=== PATIENT | male | born 1935 | race Caucasian/White ===

== ENCOUNTER → 2017-10-12 | Outpatient (CLI) | payer MEDICARE, OTHER ==
[~2017-10-12] MED LIST: ACET-1966 PO; ALIR75PE SC; APIX5TAB PO; ASCO-182 PO; ASPI-1471 PO; BICA50TA36 PO; CALC-757 PO; CEPH-13 PO; CLOP75TA43 PO; CYAN25004 PO; ERGO500037 PO; FISH1CAP15 PO; FLU180SY9 IM; FLUT9.9S; LACT1CAP6 PO; MAGN250T5 PO; MULT-1335 PO; NITR0.4T3 SL; PANT40TA65 PO; PSYL0.4C2 PO; PSYL0.5241 PO; PSYL3.4P2 PO; RAMI2.5C42 PO; RANI-324 PO; TOLN10SO3 TP; TOLN15SO; TRAM-420 PO; UBID100C48 PO; [UNRECOGNIZED DRUG - CODE] PO; [UNRECOGNIZED DRUG - CODE] TP; prevastatin PO
== END ==
LOC: RESP 10:02
PROVIDERS: ATTEND Internal Medicine
DX: J98.4 Other disorders of lung (principal); R06.02 Shortness of breath
CPT/HCPCS: 94060; 94726; 94729

== ENCOUNTER → 2017-11-16 | Outpatient (CLI) | payer MEDICARE, OTHER ==
[2017-11-16 09:50] LABS: PLATELET COUNT, AUTOMATED 141 K/uL (150-450)
== END ==
LOC: LAB 09:09
PROVIDERS: ATTEND Urology
DX: C61 Malignant neoplasm of prostate (principal)
CPT/HCPCS: 36415; 82040; 82247; 82310; 82374; 82435; 82565; 82947; 84075; 84132; 84153; 84155; 84295; 84403; 84450; 84460; 84520; 85025

== ENCOUNTER 2017-11-24 10:13 | Outpatient (RCR) | payer MEDICARE, OTHER ==
[2017-09-11 15:47] VITALS: BP 129/81
--- NOTE | 2017-09-13 00:58 | ONCOLOGY FOLLOW UP NOTE ---
EVENT DATE: September 11, 2017 CHIEF COMPLAINT/REASON FOR VISIT Mr. Foy is an 81-year-old gentleman with newly diagnosed metastatic prostate cancer here to establish care after initiation of Casodex. HISTORY OF PRESENT ILLNESS Mr. Foy presents to begin his therapy with Casodex and Lupron under the care of Dr. Miner. He has known bone disease and we would like to start Xgeva in the next week or two as well. Overall he feels well. He thinks since starting the Casodex in general he feels better. Currently he denies any hot flashes, mood changes or any other concerns. He does note high stress, as they moved from [place] approximately three months ago to be closer to his son and grandchildren, who are currently ages 12 and 10. He presents with his overall happy with his current state. PAST MEDICAL HISTORY 1. Osteoarthritis. 2. Coronary artery disease. 3. Hyperlipidemia. 4. Early stage prostate cancer status post prostatectomy in 1999 with relapse in 2017 in the bone. 5. Right hip replacement in 2011. 6. Cholecystectomy. 7. Numerous skin cancers. 8. Coronary artery stents as well as a pacemaker. 9. Abdominal surgery in the past. 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 . Has a 44-year-old son with young children here in [place]. FAMILY HISTORY Remarkable for leukemia in a brother, breast and liver cancer in his mother, a sister with some form of abdominal cancer. MEDICATIONS See chart. ALLERGIES STATINS. REVIEW OF SYSTEMS CONSTITUTIONAL: No fevers, chills, significant weight change. HEENT: He does have dry eyes. No vision changes, hearing changes. HEMATOLOGIC: Easy bruising on Coumadin. SKIN: He has numerous skin cancers and is establishing with Dermatology. CARDIOVASCULAR: He does get occasional edema. RESPIRATORY: No shortness of breath, wheeze, cough. GENITOURINARY: Nocturia times two. No frequency, urgency or hematuria. No dysuria or hematuria. GASTROINTESTINAL: No nausea, vomiting, diarrhea or constipation. MUSCULOSKELETAL: No weakness, joint pain. Positive chronic back pain. Good functional status with all of his ADLs. The remainder of the review of systems otherwise unremarkable. PHYSICAL EXAMINATION VITAL SIGNS: Blood pressure 129/81, pulse 60, respiratory rate 16, temperature 96.9 degrees Fahrenheit, oxygen saturation 94% on room air. Height 185.5 cm, weight 100 kg. Pain 0/10, fatigue 0/10. GENERAL: Stable condition, resting comfortably in the chair. HEENT: Normocephalic, atraumatic. LYMPHATIC: No appreciable cervical, supraclavicular or axillary adenopathy. CARDIOVASCULAR: Regular rate and rhythm. LUNGS: Clear. ABDOMEN: Soft, nontender, nondistended. No organomegaly or masses. EXTREMITIES: No edema today. Remainder of physical exam otherwise unremarkable. IMPRESSION AND PLAN Mr. Foy is a pleasant 81-year-old gentleman with metastatic prostate cancer , currently on Casodex and Lupron. Completely agree with Dr. Miner's plan. Would like to add Xgeva and we will do that soon. Answered all of their many questions today. We talked about the diagnosis, treatment options and natural history of metastatic prostate cancer in great detail today. Discussed future therapy options as well if needed, but hopefully he will never need them. I will see him approximately every three to six months. He will mainly be under the care of Dr. Miner, unless he has progression or resistant disease. He will get the Xgeva monthly for one year and then assess after that. Billing: New patient level 4. Total time 45 minutes, counseling time 30. MTDD
[2017-09-26 10:43] LABS: PLATELET COUNT, AUTOMATED 166 K/uL (150-450)
[2017-10-27 10:05] VITALS: BP 122/79
[2017-10-27 10:35] LABS: PLATELET COUNT, AUTOMATED 136 K/uL (150-450)
[~2017-11-24] VITALS: Ht 185.4 cm; Wt 100.0 kg
[~2017-11-24 10:13] MED LIST changes: +DENOSUMAB 120 MG/1.7 ML VIAL SUBQ ONE
[2017-11-24 10:26] VITALS: BP 110/70
[2017-11-24] MEDS ORDERED: DENOSUMAB 120 MG/1.7 ML VIAL SUBQ ONE (10:30)
[2017-11-24 10:43] LABS: PLATELET COUNT, AUTOMATED 130 K/uL (150-450)
[2017-12-05] MEDS ORDERED: ERGO500037 PO (11:05)
[2017-12-05] MEDS ORDERED: AZEL205. (11:05)
[2017-12-05] MEDS ORDERED: FLUT9.9S (11:05)
[2017-12-05] MEDS ORDERED: DEN120I SUBQ (11:15)
[2017-12-05] MEDS ORDERED: LEUP3.753 IM (11:15)
[2017-12-08] MEDS ORDERED: ERGO500037 PO (10:16)
== END 2017-12-07 ==
LOC: SPU 10:13
PROVIDERS: ATTEND Internal Medicine
DX: C61 Malignant neoplasm of prostate (principal); C79.82 Secondary malignant neoplasm of genital organs
CPT/HCPCS: 36415; 84153; 85025; 96372; G0463; J0897; 82040; 82247; 82310; 82374; 82435; 82565; 82947; 84075; 84132; 84155; 84295; 84450; 84460; 84520; 99202

== ENCOUNTER → 2017-11-29 | Outpatient (CLI) | payer MEDICARE, OTHER ==
[~2017-11-29] MED LIST changes: -DENOSUMAB 120 MG/1.7 ML VIAL SUBQ ONE; +REGADENOSON 0.4 MG/5 ML SYR ONE
--- NOTE | 2017-11-29 15:13 | RT STRESS TEST REPORT ---
FACILITY: [facility] - [place] PATIENT NAME: VIKTOR RUIZ : [id number] MR: [id number] V: [id number] EXAM DATE: ORDERING PHYSICIAN: EDWINA PEREZ TECHNOLOGIST: Yaniv Acquisition Time: 2017-11-29 14:19:34 Total Exercise Time: 00:01:00 Test Indications: Screening for CAD Medications: Protocol: LEXISCAN Max HR: 072 BPM 52% of Pred: 137 BPM Max BP: 123/092 mmHG Max Work Load: 1.0 METS Confirmed by MELISSA ZHANG ([id number]) on 11/29/2017 3:12:44 PM Referred By: Edwina Perez Overread By: MELISSA ZHANG
--- NOTE | 2017-11-29 17:03 | RADIOLOGY IMAGING REPORT ---
FACILITY: [facility] PATIENT NAME: Carlos Foy : 1935 MR: [id number] V: [id number] EXAM DATE: ORDERING PHYSICIAN: EDWINA PEREZ TECHNOLOGIST: Location: [facility] Patient: Carlos Foy : 1935 Visit/Account:[id number] Date of Sevice: 11/29/2017 EXAMINATION: Single isotope SPECT imaging with regadenoson infusion and gated SPECT imaging. DATE OF EXAMINATION: 11/29/17. DATE OF INTERPRETATION: 11/29/17. REQUESTING PHYSICIAN: EDWINA PEREZ. INDICATION: The patient is a 82-year-old male evaluated for [CAD ]. PROCEDURE: After informed consent the patient received an intravenous injection of 11.6 mCi of Tc-99 m sestamibi followed at an appropriate time interval by rest imaging. The patient then subsequently received an intravenous infusion of 0.4 mg of regadenoson per protocol without complication. Resting heart rate was 63 bpm with a peak heart rate of 72 bpm. Blood pressure at rest was 123 / 92 and fol lowing infusion was [123 ] / 92. Baseline EKG demonstrates atrial paced, ventricular sensed rhythm . There were no EKG changes of ischemia following infusion. Symptoms were nonspecific. The patient then received an intravenous injection of 28.5 mCi of Tc-99m sestamibi followed by stress imaging. RAW DATA: Examination of the summed raw data revealed a adequate quality study. No artifact present. MYOCARDIAL PERFUSION: The tomographic images demonstrate normal myocardial perfusion uptake without ischemia or infarction. No TID. GATED IMAGES: The gated images demonstrate LVEF 71%. No regional wall motion abnormalities. IMPRESSION: 1. Non-diagnostic pharmacologic stress EKG 2. Normal myocardial perfusion scan. 3. Normal LV systolic function; LVEF 71%. 4. Based on the results of this exam, the patient appears to be at low risk for 1 year cardiovascular events (<1%/next 1 year). Intermediate nursing home risk based on known CAD and need for pharmacologic stress test as opposed to exercise. 5. No prior study for comparison. Report Dictated By: Bhavik Moreno at 11/29/2017 4:53 PM Report E-Signed By: Bhavik Moreno at 11/29/2017 4:59 PM WSN:[email or web address]
== END ==
LOC: NUC 00:19
PROVIDERS: ATTEND Internal Medicine
DX: I49.1 Atrial premature depolarization (principal)
CPT/HCPCS: 78452; 93017; A9500; J2785

== ENCOUNTER → 2017-12-05 | Outpatient (CLI) | payer MEDICARE, OTHER ==
[~2017-12-05] MED LIST changes: +AZEL205.; +DEN120I SUBQ; +LEUP3.753 IM; -REGADENOSON 0.4 MG/5 ML SYR ONE
--- NOTE | 2017-12-05 13:36 | RADIOLOGY IMAGING REPORT ---
FACILITY: [facility] PATIENT NAME: Carlos Foy : 1935 MR: [id number] V: [id number] EXAM DATE: ORDERING PHYSICIAN: AME SAHU TECHNOLOGIST: [place] [facility] Foy : 1935 Visit/Account:[id number] Date of Sevice: 12/05/2017 Exam type: CHEST PA AND LAT History: sob Comparison: August 07, 2017. Findings: There is chronic interstitial prominence throughout the lungs similar to the prior study. No new are as of pulmonary consolidation are identified. The cardiac silhouette is mildly enlarged. There is c alcification of the mitral annulus. There is moderate ectasia the thoracic aorta. Dual lead cardiac pacemaker is noted, leads appear unchanged. Again noted is prior surgical resection of multiple pos terior right ribs. There are moderate spondylotic changes of the thoracic spine IMPRESSION: 1. Chronic initial prominence again noted throughout the lungs similar to the prior study Mild cardiomegaly Report Dictated By: Nury Dawn MD at 12/05/2017 1:28 PM Report E-Signed By: Nury Dawn MD at 12/05/2017 1:30 PM WSN:[email or web address]
== END ==
LOC: RAD 11:10
PROVIDERS: ATTEND Internal Medicine
DX: I51.7 Cardiomegaly (principal); I70.0 Atherosclerosis of aorta; I77.810 Thoracic aortic ectasia; Z95.0 Presence of cardiac pacemaker; Z90.89 Acquired absence of other organs; M46.90 Unspecified inflammatory spondylopathy, site unspecified
CPT/HCPCS: 71046

== ENCOUNTER → 2017-12-08 | Outpatient (CLI) | payer MEDICARE, OTHER ==
[2017-12-08 09:19] LABS: LDL CHOLESTEROL 59 mg/dl
== END ==
LOC: LAB 08:39
PROVIDERS: ATTEND Internal Medicine
DX: I48.0 Paroxysmal atrial fibrillation (principal); R06.02 Shortness of breath; C79.82 Secondary malignant neoplasm of genital organs; I25.10 Atherosclerotic heart disease of native coronary artery without angina pectoris; I10 Essential (primary) hypertension; E78.4 Other hyperlipidemia; E53.8 Deficiency of other specified B group vitamins; E55.9 Vitamin D deficiency, unspecified
CPT/HCPCS: 36415; 82040; 82247; 82306; 82310; 82374; 82435; 82465; 82565; 82607; 82947; 83718; 84075; 84132; 84155; 84295; 84443; 84450; 84460; 84478; 84520

== ENCOUNTER 2018-02-22 11:19 | Outpatient (RCR) | payer MEDICARE, OTHER ==
[2017-12-13 10:01] VITALS: BP 119/74
--- NOTE | 2017-12-13 10:56 | ONC Progress Note - NP.Halsey ---
Patient History Date of Service Dec 13, 2017 Reason For Visit/HPI Patient is seen with his today for follow-up with his metastatic prostate cancer. Patient currently is on Casodex and Lupron with Dr. Miner. Overall he reports he is tolerating treatment without difficulty. He occasionally has hot flashes followed by chills. He previously had fatigue which increased over the last 10 years ultimately leading to his diagnosis. He feels that his fatigue is slowly improving. He is able to walk almost a mile a day, but also needs to rest daily. He has no mood changes. He feels that they have settled in to [place] after moving from [place] to with his only son and grandchildren. Patient had many questions regarding length of therapy and requested to see previous bone scan and CT scan. Time was spent reviewing these. Problem List (1) Vitamin D deficiency (2) Metastatic malignant neoplasm to prostate Oncology History Patient is an 81-year-old gentleman diagnosed with metastatic prostate cancer in September 2017. Patient reports having a prostatectomy approximately 17 years ago and followed his PSA 2 years post and then no longer followed a PSA. He began to experience increased fatigue and weakness and generalized bone aches. After moving from [place] to [place] to with his son and children staging studies were completed with the PSA through primary care provider. Patient was started on Casodex and Lupron under the care of Dr. Miner. 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 . Has a 44-year-old son with young children here in [place]. FAMILY HISTORY Remarkable for leukemia in a brother, breast and liver cancer in his mother, a sister with some form of abdominal cancer. Smoking History: Yes Smoking Status: Former Smoker Medications and Allergies Active Scripts Ergocalciferol (Vitamin D2) (VITAMIN D2) 50,000 Unit Capsule, 45404 UNIT PO QWEEK, #12 CAPSULE 4 Refills Prov:AME SAHU MD 12/08/17 Fluticasone Propionate (Flonase Allergy Relief) 9.9 Ml [place].susp, 1 SPRAY NA DAILY, #3 BOT 4 Refills Prov:AME SAHU MD 12/05/17 Pantoprazole Sodium (PANTOPRAZOLE SODIUM) 40 Mg Tablet.dr, 40 MG PO QDAY, #30 TAB.SR 6 Refills Prov:AME SAHU MD 08/07/17 Ramipril (RAMIPRIL) 2.5 Mg Capsule, 2.5 MG PO QDAY, #90 CAPSULE 3 Refills Prov:AME SAHU MD 07/04/17 Nitroglycerin (NITROGLYCERIN) 0.4 Mg Tab.subl, 1 TAB SL Every 5 minutes MDD 3, # 30 TAB 3 Refills 1 tab every 5 min PRN chest pain, up to 3 doses in 15 minutes, if pain persists after 3 doses respond ER Prov:AME SAHU MD 06/15/17 Alirocumab (Praluent Pen) 75 Mg/1 Ml Pen.injctr, 75 MG SC Q4WK, #1 VIAL 6 Refills Prov:AME SAHU MD 06/01/17 Reported Medications Leuprolide Acetate (LUPRON DEPOT) 3.75 Mg Syringekit, 0 IM 12/05/17 Denosumab (XGEVA) 120 Mg/1.7 Ml Vial, 120 MG SUBQ Q4WK, VIAL 12/05/17 Azelastine HCl (Azelastine HCl) 205.5 Mcg/0.137 Ml [place].pump, 1-2 SPRAY NA QDAY Y for sinus problems 12/05/17 Tolnaftate (Formula 3) 1 % Solution, 2 BID 09/11/17 Acetaminophen (TYLENOL) 325 Mg Tablet, 325 MG PO PRN, TAB 09/11/17 Lactobacillus Combination No.4 (PROBIOTIC) 1 Each Capsule, 1 EACH PO QODAY, CAPSULE 09/11/17 Psyllium Husk (METAMUCIL) 0.52 Gm Capsule, 12 GM PO DAILY, CAPSULE 09/11/17 Multivitamin With Minerals (MULTIPLE VITAMIN) 1 Each Tablet, 1 EACH PO DAILY, TAB 09/11/17 Ranitidine Hcl (ZANTAC) 150 Mg Tablet, 150 MG PO, TAB 09/11/17 Bicalutamide (BICALUTAMIDE) 50 Mg Tablet, 50 MG PO DAILY 09/11/17 Apixaban (ELIQUIS) 5 Mg Tablet, 5 MG PO BID 08/08/17 Calcium Citrate/Vitamin D3 (CALCIUM CITRATE - VIT D TABLET) 1 Each Tablet, 1 EACH PO QDAY 06/01/17 Ascorbic Acid (VITAMIN C) 500 Mg Tablet, 1 TAB PO QDAY, TAB 06/01/17 Cyanocobalamin (Vitamin B-12) (Vitamin B12) 2,500 Mcg Tablet, 1 TAB PO QDAY 06/01/17 Tolnaftate (TOLNAFTATE) 10 Ml Solution, 1 PIA TP BID 06/01/17 Hydroquinone Microspheres (HYDROQUINONE) 30 Gm Crm.er..g., 1 PIA TP QDAY 06/01/17 Psyllium Seed (METAMUCIL) 1 Each Packet, 1 EACH PO DAILY, PACKET 02/19/16 Clopidogrel Bisulfate (PLAVIX) 75 Mg Tablet, 1 TAB PO QDAY, TAB 02/19/16 Allergies: Coded Allergies: No Known Drug Allergies (Unverified , 02/19/16) Review of System/Physical Exam Review of Systems All Systems Reviewed/Normal: Yes, Except as Noted Hematologic: Positive for Fatigue, Positive for Weakness Musculoskeletal: Positive for Joint Pain, Positive for Bone Pain Physical Exam Vital Signs Temperature: 97.1 Pulse: 60 BP Systolic: 119 BP Diastolic: 74 Respiratory Rate: 16 O2 SAT: 96 O2 Delivery: Height (inches) 73.00 Weight lb: 225 Weight oz: Weight Kg (Mejia): Pain: 8 ECOG Score: 1 General: Stable, Well Developed, Well Nourished, Not In Acute Distress HEENT: No Trauma, No Conjunctivitis Neck: Supple Lungs: Clear to Auscultation Heart: Regular Rate (patient has a pacemaker), Regular Rhythm, No Gallops Extremities: No Cyanosis, No Clubbing, No Edema Lymphadenopathy: No Cervical Psychiatric: Mood appears normal, Affect appears normal, Other (spouse is with him) Skin: No Skin Rashes, No Bruising, No Purpura Diagnostic Studies Diagnostic Studies Laboratory Item Value Date Time White Blood Count 4.0 k/uL L 11/24/17 1030 Platelet Count 130 K/uL L 11/24/17 1030 Total Bilirubin 1.4 mg/dl H 12/08/17 0845 Vitamin D 25-Hydroxy 50 ng/ml 12/08/17 0845 Vitamin B12 Level 624 pg/mL 12/08/17 0845 Prostate Specific Antigen 5.69 ng/ml H 11/24/17 1030 Assessment and Plan Assessment & Plan IMPRESSION AND PLAN Mr. Foy is a pleasant 81-year-old gentleman with metastatic prostate cancer , currently on Casodex and Lupron initiated in September 2017. Overall patient is tolerating treatment without difficulty. He does report mild hot flashes followed by chills occasionally. He feels that his fatigue has decreased and his strength has increased. His PSA has decreased. Patient was started on Xgeva and will continue monthly treatments 120 mg subcutaneous. He has good toleration. Patient continues to have pain but takes no medication at this time. He does complain of more pain in his right elbow. If this continues I will do an x-ray for further evaluation. I did review recent bone scan and CT of chest abdomen and pelvis completed in August with patient in detail today. He was very interested in the pictures. He will follow with Dr. Al in 3 months with CBC, CMP, and PSA drawn prior. If patient has increased pain in any bony area he understands that he can call the clinic and we will evaluate. We'll continue to follow with primary care. I personally spent a total of 35 minutes. Of that 30 minutes was counseling/ coordination of patient's care. See my note above for details. ANNA DELEON CASE WORKER-BC, ONC Dec 13, 2017 10:56
[2017-12-22 12:20] VITALS: BP 129/79
[2018-01-25 16:01] VITALS: BP 142/73
[~2018-02-22 11:19] MED LIST changes: +DENOSUMAB 120 MG/1.7 ML VIAL SUBQ ONE; -RANI-324 PO; +RANI-366 PO
[2018-02-22 11:25] VITALS: BP_SYST 123; BP_SYST 154; BP_DIAS 82; BP_DIAS 84
[2018-02-22] MEDS ORDERED: DENOSUMAB 120 MG/1.7 ML VIAL SUBQ ONE (11:35)
== END 2018-03-12 ==
LOC: SPU 11:19
PROVIDERS: ATTEND Internal Medicine
DX: C61 Malignant neoplasm of prostate (principal); C79.82 Secondary malignant neoplasm of genital organs; Z79.899 Other long term (current) drug therapy; Z87.891 Personal history of nicotine dependence; R53.1 Weakness; R53.83 Other fatigue
CPT/HCPCS: 36415; 83735; 84100; 84153; 85027; 96372; G0463; J0897; 82040; 82247; 82310; 82374; 82435; 82565; 82947; 84075; 84132; 84155; 84295; 84450; 84460; 84520; 99212

== ENCOUNTER 2018-03-13 15:38 | Emergency (ER) | payer MEDICARE, OTHER ==
[~2018-03-13 15:38] MED LIST changes: -DENOSUMAB 120 MG/1.7 ML VIAL SUBQ ONE
--- NOTE | 2018-03-13 16:05 | ER Report ---
History and Physical Time Seen By MD: 15:50 Hx. of Stated Complaint: pt reports L hip pain after a fall ~1030 this morning HPI/ROS CHIEF COMPLAINT: Fell on left hip HISTORY OF PRESENT ILLNESS: Pt states that he was this morning he tripped on a board and fell going down a 6 inch step. Landed on his left hand and left hip. No hand pain but some soreness in the hip. Pt was able to get up on his own. Pt has been walking. Pt called his pcp and was told to go to get an xray due to his bones are fragile. Pt denies numbness. did not hit his head. REVIEW OF SYSTEMS: Constitutional: No fever, no chills. Eyes: No discharge. ENT: No sore throat. Cardiovascular: No chest pain, no palpitations. Respiratory: No cough, no shortness of breath. Gastrointestinal: No abdominal pain, no vomiting. Genitourinary: No hematuria. Musculoskeletal: No back pain, +hip pain L Skin: No rashes. Neurological: No headache, no numbness Allergies: Coded Allergies: No Known Drug Allergies (Unverified , 03/13/18) Home Meds Active Scripts Ergocalciferol (Vitamin D2) (VITAMIN D2) 50,000 Unit Capsule, 78568 UNIT PO QWEEK, #12 CAPSULE 4 Refills Prov:AME SAHU MD 12/08/17 Fluticasone Propionate (Flonase Allergy Relief) 9.9 Ml [place].susp, 1 SPRAY NA DAILY, #3 BOT 4 Refills Prov:AME SAHU MD 12/05/17 Pantoprazole Sodium (PANTOPRAZOLE SODIUM) 40 Mg Tablet.dr, 40 MG PO QDAY, #30 TAB.SR 6 Refills Prov:AME SAHU MD 08/07/17 Ramipril (RAMIPRIL) 2.5 Mg Capsule, 2.5 MG PO QDAY, #90 CAPSULE 3 Refills Prov:AME SAHU MD 07/04/17 Nitroglycerin (NITROGLYCERIN) 0.4 Mg Tab.subl, 1 TAB SL Every 5 minutes MDD 3, # 30 TAB 3 Refills 1 tab every 5 min PRN chest pain, up to 3 doses in 15 minutes, if pain persists after 3 doses respond ER Prov:AME SAHU MD 06/15/17 Alirocumab (Praluent Pen) 75 Mg/1 Ml Pen.injctr, 75 MG SC Q4WK, #1 VIAL 6 Refills Prov:AME SAHU MD 06/01/17 Reported Medications Leuprolide Acet 3.75 Mg Qmonth (LUPRON DEPOT 3.75 MG QMONTH) 3.75 Mg Syringekit , 0 IM 12/05/17 Denosumab (XGEVA) 120 Mg/1.7 Ml Vial, 120 MG SUBQ Q4WK, VIAL 12/05/17 Azelastine HCl (Azelastine HCl) 205.5 Mcg/0.137 Ml [place].pump, 1-2 SPRAY NA QDAY Y for sinus problems 12/05/17 Tolnaftate (Formula 3) 1 % Solution, 2 BID 09/11/17 Acetaminophen (TYLENOL) 325 Mg Tablet, 325 MG PO PRN, TAB 09/11/17 Lactobacillus Combination No.4 (PROBIOTIC) 1 Each Capsule, 1 EACH PO QODAY, CAPSULE 09/11/17 Psyllium Husk (METAMUCIL) 0.52 Gm Capsule, 12 GM PO DAILY, CAPSULE 09/11/17 Multivitamin With Minerals (MULTIPLE VITAMIN) 1 Each Tablet, 1 EACH PO DAILY, TAB 09/11/17 Ranitidine Hcl (ZANTAC) 150 Mg Tablet, 150 MG PO, TAB 09/11/17 Bicalutamide (BICALUTAMIDE) 50 Mg Tablet, 50 MG PO DAILY 09/11/17 Apixaban (ELIQUIS) 5 Mg Tablet, 5 MG PO BID 08/08/17 Calcium Citrate/Vitamin D3 (CALCIUM CITRATE - VIT D TABLET) 1 Each Tablet, 1 EACH PO QDAY 06/01/17 Ascorbic Acid (VITAMIN C) 500 Mg Tablet, 1 TAB PO QDAY, TAB 06/01/17 Cyanocobalamin (Vitamin B-12) (Vitamin B12) 2,500 Mcg Tablet, 1 TAB PO QDAY 06/01/17 Tolnaftate (TOLNAFTATE) 10 Ml Solution, 1 PIA TP BID 06/01/17 Hydroquinone Microspheres (HYDROQUINONE) 30 Gm Crm.er..g., 1 PIA TP QDAY 06/01/17 Psyllium Seed (METAMUCIL) 1 Each Packet, 1 EACH PO DAILY, PACKET 02/19/16 Clopidogrel Bisulfate (PLAVIX) 75 Mg Tablet, 1 TAB PO QDAY, TAB 02/19/16 Past Medical/Surgical History pmhx: cad, prostate ca 2000 and returned Pshx: prostectomy, r hip replacement Reviewed Nurses Notes: Yes Hx Smoking: Yes Smoking Status: Former Smoker Hx Substance Use Disorder: No Hx Alcohol Use: No Constitutional Vital Sign - Last 24 Hours 03/13/18 15:40 Temp 98.1 Pulse 64 Resp 16 B/P (MAP) 136/123 Pulse Ox 93 O2 Delivery Room Air Physical Exam General Appearance: The patient is alert, has no immediate need for airway protection and no signs of toxicity. Eyes: Pupils equal and round no pallor or injection, EOMI ENT: no pharyngeal erythema or exudates, Mucous membranes are moist Respiratory: There are no retractions, lungs are clear to auscultation. Cardiovascular: Regular rate and rhythm. pulses are equal and symmetrical Gastrointestinal: Abdomen is soft and non tender, no masses, bowel sounds normal, no guarding, no rigidity or rebound Neurological: Cranial nerves II-XII grossly intact, no sensory or motor loss Skin: Warm and dry, no rashes. Musculoskeletal: Neck is supple non tender, no vertebral tenderness Extremities are nontender, non swollen and have full range of motion, no shortening of lower extremities and pt is able to elevate and hold b/l legs symmetrically, no snuff box tenderness or pain with supination or pronation of upper extremities. DIFFERENTIAL DIAGNOSIS: After history and physical exam differential diagnosis was considered for hip contusion, hip fx Medical Decision Making ED Course/Re-evaluation ED Course will obtain xray 03/13/2018 5:04:17 pm no fx but pt has bone mets which after speaking with patient he was aware Decision to Disposition Date: Mar 13, 2018 Decision to Disposition Time: 17:04 Depart Departure Latest Vital Signs Vital Signs Date Time Temp Pulse Resp B/P (MAP) Pulse Ox O2 Delivery O2 Flow Rate FiO2 03/13/18 15:40 98.1 64 16 136/123 93 Room Air Impression: Primary Impression: Contusion of hip, left Additional Impression: Metastatic breast cancer Condition: Improved Disposition: HOME OR SELF-CARE Referrals: AME SAHU MD (PCP) Patient Instructions: Contusion in Adults (GEN) Additional Instructions: Your xray did not show a fracture or break. It does show that you have bone mets from your prostate cancer. Follow up with your doctors. Return as needed. Problem Qualifiers Primary Impression: Contusion of hip, left Encounter type: initial encounter Qualified Codes: S70.02XA - Contusion of left hip, initial encounter TACO GATICA DO Mar 13, 2018 16:05
--- NOTE | 2018-03-13 16:50 | RADIOLOGY IMAGING REPORT ---
FACILITY: [facility] [place] PATIENT NAME: Carlos Foy : 1935 MR: [id number] V: [id number] EXAM DATE: ORDERING PHYSICIAN: TACO GATICA TECHNOLOGIST: Location: [facility] [place] Patient: Carlos Foy : 1935 Visit/Account:[id number] Date of Sevice: 03/13/2018 HIP LEFT Indication: Fall today Comparison: X-ray examination of the right hip from February 2016. Findings: Right total hip arthroplasty is noted. Clips are noted over the pelvis. SI joints are symmetric. P ubic rami are intact. Mild degenerative changes seen in the left hip without acute fracture. Increa sed sclerotic foci are seen in the proximal left femur. There are scattered sclerotic foci noted throughout the pelvis including a 6.1 cm region of the super ior right pubic ramus extending into the pubic body. Findings are indicative of the known sclerotic foci from prostate cancer. IMPRESSION: 1. No acute osseous finding involving the left hip. 2. Diffuse sclerotic foci in the pelvis and left femur indicative of metastatic prostate cancer. Report Dictated By: Abimael Limon MD at 03/13/2018 4:41 PM Report E-Signed By: Abimael Limon MD at 03/13/2018 4:45 PM WSN:[email or web address]
[2018-03-13 17:06] VITALS: BP 121/76
== END 2018-03-13 17:15 | disposition home or self-care (01) ==
LOC: ER 15:47
DX: S70.02XA Contusion of left hip, initial encounter (principal); C79.51 Secondary malignant neoplasm of bone; W01.0XXA Fall on same level from slipping, tripping and stumbling without subsequent striking against object, initial encounter
CPT/HCPCS: 99283

== ENCOUNTER → 2018-04-02 | Outpatient (CLI) | payer MEDICARE, OTHER | LOC: LAB 08:03 | PROVIDERS: ATTEND Internal Medicine | DX: E78.5 Hyperlipidemia, unspecified (principal) | CPT/HCPCS: 36415; 82465; 83718; 84478 ==

== ENCOUNTER → 2018-04-09 | Outpatient (CLI) | payer MEDICARE, OTHER ==
[2018-04-09 09:07] LABS: PLATELET COUNT, AUTOMATED 127 K/uL (150-450)
--- NOTE | 2018-04-09 09:59 | RADIOLOGY IMAGING REPORT ---
FACILITY: [facility] PATIENT NAME: Carlos Foy : 1935 MR: [id number] V: [id number] EXAM DATE: ORDERING PHYSICIAN: AME SAHU TECHNOLOGIST: Location: [facility] Patient: Carlos Foy : 1935 Visit/Account:[id number] Date of Sevice: 04/09/2018 CHEST PA AND LAT INDICATION: abd pain prostate cancer COMPARISON: December 05, 2017 FINDINGS: Heart size within normal limits. Left-sided pacemaker is unchanged. There is no focal infiltrate or lobar consolidation. Chronic interstitial changes are reidentified. There is no pneumothorax or pleural effusion. Right-sided thoracotomy changes are again noted IMPRESSION: 1. No acute cardiopulmonary process. Report Dictated By: Tom Haney at 04/09/2018 9:44 AM Report E-Signed By: Tom Haney at 04/09/2018 9:55 AM WSN:[email or web address]
--- NOTE | 2018-04-09 10:42 | RADIOLOGY IMAGING REPORT ---
FACILITY: [facility] PATIENT NAME: Carlos Foy : 1935 MR: [id number] V: [id number] EXAM DATE: ORDERING PHYSICIAN: AME SAHU TECHNOLOGIST: Location: [facility] Patient: Carlos Foy : 1935 Visit/Account:[id number] Date of Sevice: 04/09/2018 EXAMINATION: Abdominal ultrasound complete HISTORY: Abdomen pain, prostate cancer COMPARISON: CT abdomen pelvis September 01, 2017 FINDINGS: Gallbladder: Surgically absent Liver: Mild hepatomegaly. Normal-appearing echotexture with no evidence of focal mass Common duct: Normal measuring 6.4 mm. Pancreas: Obscured by bowel gas Spleen: Normal in size and echogenicity measuring 11.5 cm in length. Kidneys: Normal in size and echogenicity, the right measures 10.6 cm in length, and the left 11.9 cm . No hydronephrosis. There is a 9.6 mm round hypoechoic space-occupying process in the mid right ki dney. This could represent a cyst with internal echoes versus a solid mass. Upper abdominal aorta and IVC: Negative. Ascites: None. IMPRESSION: Post surgical changes from a cholecystectomy Mild hepatomegaly Pancreas obscured by bowel gas 9.6 mm round hypoechoic space-occupying process in the mid right kidney. Differential diagnosis woul d include a cyst with internal echoes versus a solid mass. If further imaging is desired CT or MR of the kidneys with and without contrast recommended Report Dictated By: Nury Dawn MD at 04/09/2018 10:32 AM Report E-Signed By: Nury Dawn MD at 04/09/2018 10:38 AM WSN:[email or web address]
== END ==
LOC: US 01:44
PROVIDERS: ATTEND Internal Medicine
DX: R16.0 Hepatomegaly, not elsewhere classified (principal); Z95.0 Presence of cardiac pacemaker; Z90.49 Acquired absence of other specified parts of digestive tract; I10 Essential (primary) hypertension; R10.9 Unspecified abdominal pain; I25.10 Atherosclerotic heart disease of native coronary artery without angina pectoris; I48.0 Paroxysmal atrial fibrillation
CPT/HCPCS: 36415; 71046; 76700; 81001; 82040; 82150; 82247; 82310; 82374; 82435; 82565; 82947; 83690; 84075; 84132; 84155; 84295; 84450; 84460; 84520; 85025

== ENCOUNTER → 2018-04-20 | Outpatient (CLI) | payer MEDICARE, OTHER ==
[~2018-04-20] MED LIST changes: -BICA50TA36 PO; +BICA50TA41 PO; +IOPAMIDOL 76% 100 ML INFUS BTL 100 ML ONE
--- NOTE | 2018-04-20 14:25 | RADIOLOGY IMAGING REPORT ---
[place] [facility]: [place] Foy : 1935 MR: [id number] V: [id number] EXAM DATE: ORDERING PHYSICIAN: AME SAHU TECHNOLOGIST: Location: [facility] [place] Patient: Carlos Foy : 1935 Visit/Account:[id number] Date of Sevice: 04/20/2018 CT abdomen and pelvis with and without contrast. Indication: Abnormal Ultrasound of the abdomen. Comparison: Abdominal ultrasound from 04/09/2018.. An CT abdomen and pelvis 09/01/2017. Technique: Axial CT images were obtained through the abdomen and pelvis during injection of nonioni c iodinated intravenous contrast. Reformatted coronal and sagittal images were also obtained. Pre con trast and delayed images were also obtained. One of the following dose optimization techniques was ut ilized in the performance of this exam: Automated exposure control; adjustment of the mA and/or kV ac cording to the patient's size; or use of an iterative reconstruction technique. Specific details can be referenced in the facility's radiology CT exam operational policy. Contrast: 80 ml of Isovue-370 IV contrast. Findings: Lower lung vivas: Limited views of the lung bases show evidence of old nonunion fractures of the rig ht posterior lateral ribs. No focal parenchymal abnormality visualized lower lung vivas. Liver: No focal parenchymal abnormality of the liver. Biliary: Gallbladder is surgically absent with surgical clips within the gallbladder fossa. Pancreas: Normal appearance. Spleen: Normal appearance. Adrenal glands: Unremarkable. Kidneys / retroperitoneum: Overall stable appearance of a subcentimeter cyst within the mid right kid henri when compared to prior CT from 09/01/2017. There is no enhancing mass lesion. No hydronephrosis of either kidney. Mild prominence of left renal pelvis unchanged. Bowel / peritoneum / mesenteries: No evidence of bowel obstruction. Moderate amount of stool seen wi thin the colon. Nonspecific mild amount of free fluid in lower pelvis. This could be reactive in nature from underly ing mild inflammatory process. There are no changes of fat stranding or acute process. The appendix is visualized and appears unremarkable. Lymph node assessment: Decreased size of the previously described left external iliac lymph node whic h now measures approximately 1.5 x 1.2 cm compared to prior measurement of 2 x 1.7 cm. Otherwise, th ere is no significant enlarged lymphadenopathy. Pelvic structures: Surgically absent prostate again noted with multiple surgical clips seen within the lower pelvis. Vessels: Moderate arthroscopic calcifications within the abdominal aorta and its branches. atheroscle rotic calcifications seen throughout a nonaneurysmal abdominal aorta and branches. Extensive atheros clerotic calcifications of the splenic artery again noted. Musculoskeletal / Body wall: Multifocal osseous metastatic lesions again noted corresponding to patie nt's known history of prostate cancer. Prominent degenerative changes lower lumbar spine. Unchanged mild ventral hernia. IMPRESSION: 1. No mass lesion identified within right kidney aside from a stable appearing subcentimeter cyst. 2. Stable appearance of multifocal osseous metastatic disease. 3. Decreased size of the left external iliac lymph node as above. 4. No acute change from prior exam. Report Dictated By: Axel Arellano MD at 04/20/2018 2:09 PM Report E-Signed By: Axel Arellano MD at 04/20/2018 2:22 PM WSN:[email or web address]
== END ==
LOC: CT 03:37
PROVIDERS: ATTEND Internal Medicine
DX: I25.10 Atherosclerotic heart disease of native coronary artery without angina pectoris (principal); Z90.49 Acquired absence of other specified parts of digestive tract; N28.1 Cyst of kidney, acquired; Z90.79 Acquired absence of other genital organ(s); C79.51 Secondary malignant neoplasm of bone; Z85.46 Personal history of malignant neoplasm of prostate
CPT/HCPCS: 74178; Q9967

== ENCOUNTER → 2018-05-08 | Outpatient (REF) | payer MEDICARE, OTHER ==
[~2018-05-08] MED LIST changes: -IOPAMIDOL 76% 100 ML INFUS BTL 100 ML ONE
== END ==
LOC: ZZSENDIN 17:25
PROVIDERS: ATTEND Urology
DX: C61 Malignant neoplasm of prostate (principal)
CPT/HCPCS: 84403

== ENCOUNTER → 2018-05-24 | Outpatient (CLI) | payer MEDICARE, OTHER ==
[2018-05-24 09:50] LABS: LDL CHOLESTEROL 74 mg/dl
== END ==
LOC: LAB 08:19
PROVIDERS: ATTEND Internal Medicine
DX: I25.10 Atherosclerotic heart disease of native coronary artery without angina pectoris (principal); E78.00 Pure hypercholesterolemia, unspecified
CPT/HCPCS: 36415; 82040; 82247; 82310; 82374; 82435; 82465; 82565; 82947; 83718; 83880; 84075; 84132; 84155; 84295; 84450; 84460; 84478; 84520

== ENCOUNTER 2018-06-01 11:41 | Outpatient (RCR) | payer MEDICARE, OTHER ==
[2018-03-27 10:59] VITALS: BP 115/78
[2018-03-27 11:11] LABS: PLATELET COUNT, AUTOMATED 138 K/uL (150-450)
[2018-03-28 10:31] VITALS: BP 118/73
--- NOTE | 2018-03-29 04:24 | [facility] ONCOLOGY NOTE ---
EVENT DATE: March 28, 2018 CHIEF COMPLAINT/REASON FOR VISIT Mr. Foy is a very pleasant 82-year-old gentleman with metastatic prostate cancer on Lupron and Casodex, here for followup. HISTORY OF PRESENT ILLNESS Mr. Foy returns. He is currently receiving Casodex and Lupron under the care of Dr. Miner. He is tolerating it well with minimal hot flashes that are occasional, followed by chills. He feels that his overall energy and pain have improved, and this is consistent with his response, as his PSA is improving nicely. It is down to 2.8 today. I would like to continue therapy indefinitely , and he understand this, given the general tolerability at the moment. ONCOLOGY HISTORY Diagnosed with metastatic prostate cancer in September 2017. He had a prostatectomy approximately in 1999. He had bone aches, fatigue and weakness, which led to the diagnosis of metastatic prostate cancer. He is on Casodex and Lupron under the care of Dr. Miner and is responding very well with steady improvement. 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 , and has presented with his . He has a 45-year-old son with young children here in [place]. FAMILY HISTORY Remarkable for leukemia in a brother, breast and liver cancer in his mother, and a sister with an abdominal cancer. REVIEW OF SYSTEMS CONSTITUTIONAL: No fevers, chills, significant weight change. HEENT: No headache or vision changes. CARDIOVASCULAR: No chest pain, dyspnea on exertion or edema. RESPIRATORY: No shortness of breath, wheeze, cough. GASTROINTESTINAL: No nausea, vomiting, diarrhea or constipation. GENITOURINARY: No dysuria or hematuria. MUSCULOSKELETAL: No weakness, joint pain. Remainder of 14-point review of systems otherwise negative. PHYSICAL EXAMINATION VITAL SIGNS: Blood pressure 118/73, pulse 60, respiratory rate 16, temperature 96.8 Fahrenheit, oxygen saturation 93% on room air. Weight 101.8 kg. Pain 2/ 10 in the hips bilaterally, fatigue 4/10. GENERAL: Stable condition, resting comfortably in the chair. HEENT: Normocephalic, atraumatic. CARDIOVASCULAR: Regular rate and rhythm. LUNGS: Clear. ABDOMEN: Soft, nontender. EXTREMITIES: No clubbing, cyanosis or edema. Remainder of physical exam otherwise deferred and unremarkable. IMPRESSION AND PLAN Mr. Danii is a pleasant 82-year-old gentleman with metastatic prostate cancer , on Lupron and Casodex. Overall he is doing quite well. Will continue the Casodex, Lupron and Xgeva. Will continue the Xgeva for the remainder of the year. I answered all of his questions today. We will see him every three months. Billing: Return visit, level 4. Total time 30 minutes, counseling time 20. MTDD
[2018-05-02 10:55] VITALS: BP 117/82
[2018-05-02 11:30] LABS: PLATELET COUNT, AUTOMATED 139 K/uL (150-450)
[~2018-06-01 11:41] MED LIST changes: +DENOSUMAB 120 MG/1.7 ML VIAL SUBQ ONE
[2018-06-01] MEDS ORDERED: DENOSUMAB 120 MG/1.7 ML VIAL SUBQ ONE (12:00)
[2018-06-01 12:28] LABS: PLATELET COUNT, AUTOMATED 126 K/uL (150-450)
[2018-06-01 16:19] VITALS: BP 125/80
== END 2018-06-08 09:01 | disposition home or self-care (01) ==
LOC: SPU 11:41
PROVIDERS: ATTEND Internal Medicine
DX: C61 Malignant neoplasm of prostate (principal); C79.82 Secondary malignant neoplasm of genital organs
CPT/HCPCS: 36415; 83735; 84100; 84153; 85025; 96372; G0463; J0897; 82040; 82247; 82310; 82374; 82435; 82565; 82947; 84075; 84132; 84155; 84295; 84450; 84460; 84520; 99212

== ENCOUNTER → 2018-07-06 | Outpatient (CLI) | payer MEDICARE, OTHER ==
[~2018-07-06] MED LIST changes: -DENOSUMAB 120 MG/1.7 ML VIAL SUBQ ONE; -RAMI2.5C42 PO; +RAMI2.5C43 PO
== END ==
LOC: LAB 09:05
PROVIDERS: ATTEND Internal Medicine
DX: C61 Malignant neoplasm of prostate (principal); R19.7 Diarrhea, unspecified; I25.10 Atherosclerotic heart disease of native coronary artery without angina pectoris
CPT/HCPCS: 81001; 82274; 83630; 87045; 87088; 87205

== ENCOUNTER → 2018-10-30 | Outpatient (CLI) | payer MEDICARE, OTHER ==
[~2018-10-30] MED LIST changes: +FLU180SY11 IM; +IPRN ENA; +VARI50KI IM
[2018-10-30 08:10] LABS: PLATELET COUNT, AUTOMATED 133 K/uL (150-450)
[2018-10-30 08:33] LABS: LDL CHOLESTEROL 59 mg/dl
== END ==
LOC: LAB 07:51
PROVIDERS: ATTEND Internal Medicine
DX: I25.10 Atherosclerotic heart disease of native coronary artery without angina pectoris (principal); I10 Essential (primary) hypertension; C61 Malignant neoplasm of prostate
CPT/HCPCS: 36415; 82040; 82247; 82310; 82374; 82435; 82465; 82565; 82947; 83718; 84075; 84132; 84155; 84295; 84443; 84450; 84460; 84478; 84520; 85025

== ENCOUNTER → 2018-10-30 | Outpatient (CLI) | payer MEDICARE, OTHER ==
--- NOTE | 2018-10-30 11:07 | EKG ---
[place] [facility] [place] NAME: VIKTOR RUIZ : [id number] MR: [id number] V: [id number] EXAM DATE: ORDERING PHYSICIAN: WINNIE LEYVA TECHNOLOGIST: MARIE Rogers Reason : PREOP Blood Pressure : / mmHG Vent. Rate : 119 BPM Atrial Rate : 061 BPM P-R Int : 000 ms QRS Dur : 112 ms QT Int : 230 ms P-R-T Axes : 000 039 -78 degrees QTc Int : 323 ms Atrial paced rhythm Inferior infarct , age undetermined Abnormal ECG Similar to previous EKGs Confirmed by SUHAIL ZENG ([id number]) on 10/30/2018 3:06:15 PM Referred By: MELANY Confirmed By:SUHAIL ZENG
== END ==
LOC: RESP 07:55
PROVIDERS: ATTEND Surgery
DX: R94.31 Abnormal electrocardiogram [ECG] [EKG] (principal); Z95.0 Presence of cardiac pacemaker
CPT/HCPCS: 93005

== ENCOUNTER 2018-11-07 08:03 | Outpatient (RCR) | payer MEDICARE, OTHER ==
[~2018-11-07 08:03] MED LIST changes: +IPRA0.2S8 IH
--- NOTE | 2018-11-07 15:46 | RADIOLOGY IMAGING REPORT ---
FACILITY: [facility] PATIENT NAME: Carlos Foy : 1935 MR: [id number] V: [id number] EXAM DATE: ORDERING PHYSICIAN: EZ EUCEDA TECHNOLOGIST: Location: [facility] Patient: Carlos Foy : 1935 Visit/Account:[id number] Date of Sevice: 11/07/2018 NM BONE SCAN COMPLETE HISTORY: Prostate cancer, right hip pain TECHNIQUE: 23.9 mCi technetium 99m HDP was injected intravenously. Delayed anterior and posterior wh ole body gamma camera images were obtained. Additional gamma camera images: Right left lateral skull COMPARISON: September 01, 2017 FINDINGS: Bone radiotracer activity: There is a photopenic defect from a right hip arthroplasty. Abnormal isotope uptake again noted in the proximal left femur the left sacral jorge T10 9 and a post scapula and multiple bilateral ribs. There is very subtle isotope uptake seen along the right side o f L2 and T11 although appears less prominent when compared to the prior study. Previously noted isot ope uptake superior pubic ramus on the right is no longer seen Increased isotope uptake in the lower cervical spine may be postoperative in nature as the patient haro s had prior surgery of the cervical spine Extraosseous radiotracer activity: Unremarkable. Renal and urinary collecting system activity: Unremarkable. IMPRESSION: Multifocal areas of isotope uptake in the axial and appendicular skeleton as described above consiste nt with the history of prostate cancer with osseous metastases. Less isotope uptake is now identifie d at L2 and T11. Previously noted isotope uptake superior pubic ramus on the right is no longer seen Report Dictated By: Nury Dawn MD at 11/07/2018 3:34 PM Report E-Signed By: Nury Dawn MD at 11/07/2018 3:41 PM WSN:[email or web address]
== END 2018-11-07 18:00 | disposition home or self-care (01) ==
LOC: NUC 08:03 → EDSTATUS 08:03 → NUC 18:00
PROVIDERS: ATTEND Nurse Practitioner
DX: C61 Malignant neoplasm of prostate (principal); C79.82 Secondary malignant neoplasm of genital organs
CPT/HCPCS: 78306; A9503

== ENCOUNTER → 2018-11-16 | Day surgery (SDC) | payer MEDICARE, OTHER ==
[2018-11-16] VITALS (9 sets, daily range): BP systolic 76–128; BP diastolic 36–84
[~2018-11-16] VITALS: Ht 190.5 cm; Wt 99.3 kg
[~2018-11-16] MED LIST changes: +KETAMINE HCL-NS 50 MG/5 ML SYR ONE; +LIDOCAINE/SOD BICARB 8.4% SYR ID ONE; +NORMOSOL R SOLN(*) 1000 ML BAG 1,000 ML IV PRN
--- NOTE | 2018-11-16 07:28 | Short(Outpt) Discharge Summary ---
Discharge Summary Reason for Hosp/Final Diag: (1) Abdominal pain Hospital Course & Plan: 83 yo m presented for egd. he tolerated the procedure well and there were no complications. path pending. he will be sent home when criteria met. Departure Discharge to: Home Discharge Instructions Home Meds Active Scripts Ranitidine Hcl (ZANTAC) 150 Mg Tablet, 150 MG PO BID, #180 TAB 3 Refills Prov:AME SAHU MD 10/22/18 Nitroglycerin (NITROGLYCERIN) 0.4 Mg Tab.subl, 1 TAB SL Every 5 minutes MDD 3, #30 TAB 3 Refills 1 tab every 5 min PRN chest pain, up to 3 doses in 15 minutes, if pain persists after 3 doses respond ER Prov:AME SAHU MD 10/22/18 Azelastine HCl (Azelastine HCl) 205.5 Mcg/0.137 Ml [place].pump, 2 SPRAY NA QDAY PRN for sinus problems, #3 BOT 3 Refills Prov:AME SAHU MD 10/19/18 Varicella-Zoster Ge/As01b/Pf (Shingrix Vial Kit) 50 Mcg/0.5 Ml Kit, 0.5 ML IM ONCE, #1 KIT 1 Refill Prov:AME SAHU MD 10/10/18 Ramipril (RAMIPRIL) 2.5 Mg Capsule, 2.5 MG PO QDAY, #90 CAPSULE 1 Refill Prov:AME SAHU MD 07/04/18 Alirocumab (Praluent Pen) 75 Mg/1 Ml Pen.injctr, 75 MG SC Q4WK, #1 PACK 5 Refills Prov:AME SAHU MD 05/16/18 Ergocalciferol (Vitamin D2) (VITAMIN D2) 50,000 Unit Capsule, 43873 UNIT PO QWEEK, #12 CAPSULE 4 Refills Prov:AME SAHU MD 12/08/17 Fluticasone Propionate (Flonase Allergy Relief) 9.9 Ml [place].susp, 1 SPRAY NA DAILY, #3 BOT 4 Refills Prov:AME SAHU MD 12/05/17 Pantoprazole Sodium (PANTOPRAZOLE SODIUM) 40 Mg Tablet.dr, 40 MG PO QDAY, #30 TAB.SR 6 Refills Prov:AME SAHU MD 08/07/17 Reported Medications Ipratropium [place] (IPRATROPIUM BROMIDE) 0.2 Mg/1 Ml Solution, 0.3 MG IH DAILY 11/02/18 Leuprolide Acet 3.75 Mg Qmonth (LUPRON DEPOT 3.75 MG QMONTH) 3.75 Mg Syringekit, 0 IM 12/05/17 Tolnaftate (Formula 3) 1 % Solution, 2 BID 09/11/17 Acetaminophen (TYLENOL) 325 Mg Tablet, 325 MG PO PRN, TAB 09/11/17 Multivitamin With Minerals (MULTIPLE VITAMIN) 1 Each Tablet, 1 EACH PO DAILY, TAB 09/11/17 Bicalutamide (BICALUTAMIDE) 50 Mg Tablet, 50 MG PO DAILY 09/11/17 Apixaban (ELIQUIS) 5 Mg Tablet, 5 MG PO BID 08/08/17 Cyanocobalamin (Vitamin B-12) (Vitamin B12) 2,500 Mcg Tablet, 1 TAB PO QDAY 06/01/17 Tolnaftate (TOLNAFTATE) 10 Ml Solution, 1 PIA TP BID 06/01/17 Hydroquinone Microspheres (HYDROQUINONE) 30 Gm Crm.er..g., 1 PIA TP QDAY 06/01/17 Clopidogrel Bisulfate (PLAVIX) 75 Mg Tablet, 1 TAB PO QDAY, TAB 02/19/16 Diet: Regular Activity: As Tolerated Special Instructions: we will call you in 10 days with biopsy results. WINNIE LEYVA Nov 16, 2018 07:28
== END ==
LOC: OR 00:16
PROVIDERS: ATTEND Surgery
DX: K29.70 Gastritis, unspecified, without bleeding (principal)
CPT/HCPCS: 43239; 87077; 88305; J3490

== ENCOUNTER → 2018-12-03 | Outpatient (CLI) | payer MEDICARE, OTHER ==
[~2018-12-03] MED LIST changes: -KETAMINE HCL-NS 50 MG/5 ML SYR ONE; -LIDOCAINE/SOD BICARB 8.4% SYR ID ONE; -NORMOSOL R SOLN(*) 1000 ML BAG 1,000 ML IV PRN
[2018-12-03 16:45] LABS: PLATELET COUNT, AUTOMATED 136 K/uL (150-450)
== END ==
LOC: LAB 15:54
PROVIDERS: ATTEND Internal Medicine
DX: K52.9 Noninfective gastroenteritis and colitis, unspecified (principal); R19.7 Diarrhea, unspecified; K92.2 Gastrointestinal hemorrhage, unspecified; I25.10 Atherosclerotic heart disease of native coronary artery without angina pectoris; C61 Malignant neoplasm of prostate
CPT/HCPCS: 36415; 82150; 82728; 83540; 83550; 83690; 84443; 85025; G0328; 82040; 82247; 82274; 82310; 82374; 82435; 82565; 82947; 84075; 84132; 84155; 84295; 84450; 84460; 84520

== ENCOUNTER 2018-12-21 09:37 | Outpatient (RCR) | payer MEDICARE, OTHER ==
[2018-10-05 10:07] VITALS: BP 117/74
--- NOTE | 2018-11-08 11:43 | RADIOLOGY IMAGING REPORT ---
FACILITY: [facility] PATIENT NAME: Carlos Foy : 1935 MR: [id number] V: [id number] EXAM DATE: ORDERING PHYSICIAN: BENSON SANDHU TECHNOLOGIST: Location: [facility] [place] Patient: Carlos Foy : 1935 Visit/Account:[id number] Date of Sevice: 11/08/2018 CT ABDOMEN PELVIS W & W/O CONTRAST HISTORY: Prostate cancer, abdomen pain and abdomen bulge TECHNIQUE: Axial images acquired through the abdomen/pelvis both with and without IV contrast.. Sukh nal and sagittal reformatting also performed.Dose Lowering Technique One of the following dose optimization techniques was utilized in the performance of this exam: Autom ated exposure control; adjustment of the mA and/or kV according to the patient's size; or use of an i terative reconstruction technique. Specific details can be referenced in the facility's radiology C T exam operational policy. CONTRAST: 75 mL Isovue-370 COMPARISON: CT abdomen pelvis April 20, 2018 FINDINGS: Visualized lung bases: Linear scarring in the lung bases appears unchanged. Severe coronary artery calcifications are in addition to what appear to be coronary stents. Incomple tely imaged are cardiac pacemaker leads Hepatobiliary: There postsurgical changes from a cholecystectomy Spleen: Negative. Adrenals: Negative. Pancreas: Negative. Kidneys ureters and bladder: Negative. Genitalia: There postsurgical changes from a prostatectomy GI: There is thickening of the visualized distal esophagus Vessels/spaces/nodes: From mild atherosclerotic calcifications in the abdominal aorta and severe aries cifications throughout the splenic artery. There is moderate narrowing at the origin of the right re nal artery secondary to atherosclerotic calcifications. Incidentally noted is a retroaortic left chelsey al vein . The previously described left external iliac lymph node has further decreased in size now measuring 1 .2 x 0.8 cm previously measuring 1.5 x 1.2 cm. The pelvic structures are not ideally evaluated due t o some numerous streak artifacts from a right hip arthroplasty. There is a trace amount of free pelv ic fluid Bones/soft tissues: There is a small left inguinal hernia containing fat . Small ventral hernia in the upper abdomen containing fat again noted Diffuse blastic metastases again seen throughout the visualized bones appear relatively stable when c ompared to the prior study. There are multiple old right-sided rib fractures Additional findings: None pertinent. IMPRESSION: Diffuse osteoblastic metastases with visualized bones appear relatively stable when compared the prio r study Small left inguinal hernia containing fat Small ventral hernia containing fat Previously described left external iliac lymph node has further decreased in size There is thickening of the visualized distal esophagus. This could be inflammatory in nature althoug h clinical correlation suggested Additional chronic findings as detailed above Report Dictated By: Nury Dawn MD at 11/08/2018 11:25 AM Report E-Signed By: Nury Dawn MD at 11/08/2018 11:39 AM WSN:[email or web address]
[2018-11-12 11:16] VITALS: BP 130/79
--- NOTE | 2018-11-12 13:41 | [facility] ONCOLOGY NOTE ---
EVENT DATE: November 12, 2018 CHIEF COMPLAINT/REASON FOR VISIT Mr. Foy is a pleasant 83-year-old gentleman with metastatic prostate cancer, on Casodex, Lupron, and Xgeva with treatment by Dr. Miner for his hormonal therapy, who presents for followup. HISTORY OF PRESENT ILLNESS Carlos returns. He is overall doing okay. His PSA has seen steady improvement from 2.8 in March 2018 down to 1.7 in October 2018. Slow and steady response. He has had two to three months of intermittent coffee-ground appearing melena and I am concerned that he has an unrelated issue in his stomach. He does have some discomfort in the stomach at times. He avoids aspirin and other NSAIDs. He does take Tylenol as needed. 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 No other issues today. His hematocrit has been stable and he notes that the melena has been improved. He has not yet had an endoscopy and it is scheduled for later this week. His PSA is improved but his CT scan and bone scan shows concerning areas for metastatic disease. One area of concern is near an artificial hip and I recommend he meet with Dr. De La Cruz to evaluate this and consider treatment of that area if necessary. The pain is tolerable and he is working with physical therapy to improve symptoms with it. ONCOLOGY HISTORY Diagnosed with prostate cancer in 1999. He underwent prostatectomy. He was then found to have metastatic prostate cancer to the bones in September 2017. He is currently on Casodex and Lupron under the care of Dr. Miner. He receives Xgeva at our clinic monthly. PAST MEDICAL HISTORY 1. Prostate cancer, 1999. 2. Coronary artery disease, status post angioplasty and stents. 3. Hyperlipidemia. 4. Hypertension. 5. Atrial fibrillation. PAST SURGICAL HISTORY 1. Prostatectomy, 1999. 2. Cholecystectomy, 2000. 3. Pacemaker, 2013. 4. Total hip replacement on the right. MEDICATIONS 1. Casodex 50 mg. 2. Eliquis 5 mg b.i.d. 3. Plavix. 4. Ramipril. 5. Zantac. 6. Vitamin D. ALLERGIES No known drug allergies. FAMILY HISTORY One brother had leukemia. Mother had breast and liver cancer. Sister with abdominal cancer. SOCIAL HISTORY Patient is . They have one son. 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 He smoked for a short time, but quit in 1962. He does not drink alcohol. REVIEW OF SYSTEMS CONSTITUTIONAL: No fevers, chills, significant weight change. HEENT: No headache or vision changes. CARDIOVASCULAR: No chest pain, dyspnea on exertion, or edema. RESPIRATORY: No shortness of breath, wheeze, or cough. GASTROINTESTINAL: Positive for alternating diarrhea and constipation as well as recent melena. No hematemesis. GENITOURINARY: No dysuria or hematuria. MUSCULOSKELETAL: No weakness or joint pain. No bone pain. PSYCHIATRIC: No anxiety or depression. SKIN: No concerning rashes or lesions. He does have skin changes, likely related to prior radiation exposure and sun exposure. Major 14-point review of systems otherwise negative. PHYSICAL EXAMINATION VITAL SIGNS: Blood pressure 130/79, pulse 61, respiratory rate 16, temperature 97 Fahrenheit, oxygen saturation 94% on room air, weight 101.7 kg and stable. Pain 4/10, fatigue 0/10. GENERAL: In stable condition, resting comfortably in the chair. HEENT: Normocephalic, atraumatic. CARDIOVASCULAR: Regular rate and rhythm. LUNGS: Clear to auscultation bilaterally. ABDOMEN: Soft, nontender. He does have a small ventral hernia. He has been told that he has a hiatal hernia in the past, which I explained to him would be a separate hernia as well. EXTREMITIES: No clubbing, cyanosis, or edema. SKIN: Numerous lesions removed for skin cancer. He has a followup with dermatology scheduled. Remainder of physical exam otherwise unremarkable. IMPRESSION/REPORT/PLAN Mr. Foy is a very pleasant 83-year-old gentleman with the following: Metastatic prostate cancer, currently on Casodex, Lupron and Xgeva. We will need to continue the Xgeva monthly given the bone lesions that we have seen on the recent imaging. I had thought we would be able to move it to to quarterly because he was in complete remission but this is not yet the case. He does have a lesion that is near his artificial hip and I would like radiation oncology to review this. I answered all of their many questions. No change in therapy at this time. We briefly discussed the potential to consider an additional therapy such as enzalutamide or abiraterone. This is not required at this time as his PSA continues to improve. BILLING Return visit level 4. Total time 30 minutes, counseling time 20. MTDD
[2018-11-23 10:14] VITALS: BP 129/80
[2018-11-23 15:13] LABS: PLATELET COUNT, AUTOMATED 141 K/uL (150-450)
[~2018-12-21 09:37] MED LIST changes: +DENOSUMAB 120 MG/1.7 ML VIAL SUBQ ONE
[2018-12-21 09:41] VITALS: BP 135/82
[2018-12-21] MEDS ORDERED: DENOSUMAB 120 MG/1.7 ML VIAL SUBQ ONE (09:55)
[2018-12-21 09:57] LABS: PLATELET COUNT, AUTOMATED 152 K/uL (150-450)
[2018-12-24] MEDS ORDERED: RAMI2.5C43 PO (13:18)
== END 2019-01-03 ==
LOC: SPU 09:37
PROVIDERS: ATTEND Internal Medicine
DX: C61 Malignant neoplasm of prostate (principal); C79.82 Secondary malignant neoplasm of genital organs; K92.0 Hematemesis; I25.10 Atherosclerotic heart disease of native coronary artery without angina pectoris; Z95.5 Presence of coronary angioplasty implant and graft; I10 Essential (primary) hypertension; I48.91 Unspecified atrial fibrillation; Z95.0 Presence of cardiac pacemaker; Z79.01 Long term (current) use of anticoagulants; Z96.641 Presence of right artificial hip joint
CPT/HCPCS: 36415; 83735; 84100; 84153; 85025; 96372; G0463; J0897; Q9967; 74178; 82040; 82247; 82310; 82374; 82435; 82565; 82947; 84075; 84132; 84155; 84295; 84450; 84460; 84520; 99212

== ENCOUNTER → 2019-01-11 | Outpatient (CLI) | payer MEDICARE, OTHER ==
[~2019-01-11] MED LIST changes: -DENOSUMAB 120 MG/1.7 ML VIAL SUBQ ONE
== END ==
LOC: LAB 09:02
PROVIDERS: ATTEND Urology
DX: C61 Malignant neoplasm of prostate (principal); E78.5 Hyperlipidemia, unspecified
CPT/HCPCS: 36415; 82465; 84403

== ENCOUNTER → 2019-01-18 | Outpatient (CLI) | payer MEDICARE, OTHER ==
[~2019-01-18] MED LIST changes: +CLIN300C99 PO; +LEVO750T44 PO
== END ==
LOC: LAB 14:04
PROVIDERS: ATTEND Nurse Practitioner Primary Care
DX: L03.90 Cellulitis, unspecified (principal)
CPT/HCPCS: 87070; 87077; 87186

== ENCOUNTER 2019-01-22 15:31 | Outpatient (RCR) | payer MEDICARE, OTHER ==
--- NOTE | 2018-10-30 15:26 | PT INITIAL EVALUATION ---
MEDICAL DIAGNOSIS: Z74.09 Impaired functional mobility, balance, gait and endurance TREATMENT DIAGNOSIS: R26.89 Imbalance, R53.81 Physical deconditioning, R 53.1 Weakness, Same DATE OF ONSET: 04/08/17 SUBJECTIVE: Carlos Wheat" Danii presents to PT for weakness, difficulty with mobility over the last 18 months. He was diagnosed with metastatic prostate cancer 08/2017. Carlos relates he used to walk 2 miles daily and participate in 30 min. of HEP with his , but now isn't walking as far, and not exercising as much due to fatigue and weakness. He had R JULISSA years ago and notes that three years ago his hip started clunking. He also reports B L-S weakness with bending over. Pain location is L-S and R posterior hip and described as ache, weakness. Pain scale is 5/10, worse with bending over, fast walking and better with rest. REHAB PROBLEM LIST: Increased Pain Decreased ROM Decreased Strength Decreased Balance Decreased Mobility Decreased Gait PREVIOUS MEDICAL HISTORY: Metastatic prostate cancer, R JULISSA, hyperlipidemia, cholecystectomy, prostatectomy. 2017 bone scan femoral neck t-score -1.4. 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 OBJECTIVE: Posture: Reduced lumbar lordosis, slightly taller L iliac crest. ROM: Lumbar AROM flexion 50%, extension 25% with R hip cluck with return from lumbar flexion. R hip PROM deferred due to clunking. Strength: Quad R 4+/5, L 4/5, hamstrings R 5-/5, L 4/5, ankle DF, peroneals 5/5, calves 3/5. R G. medius, G. minimus 5-/5, piriformis 4/5. Sensation: [place] monofilament test: Loss of protective sensation B plantar feet "O" 5.18. Mobility: Bed mobility with difficulty raising L LE onto the mat table due to L hip pain and weakness. Sit/stand 3 attempts from low chair with UE use. Gait: Six minutes walk test 1,539 feet (>mean 80-89 y/o male 1,368 feet), 2.9 mph, R hip pain 5/10, O2 91-94%, HR 65 - 77 BPM. Zoran ambulates with mild R shorter stance length. Balance: Gleason Balance Assessment 56/56. Static stand on foam, eyes closed with retro balance disturbance. Gait with head motion with weaving. Heel/toe rocking with retro balance loss. 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 Short Term Goals One month: Zoran arises from low chairs in one attempt, no UE use. Two months: Zoran arises from the floor independently, R hip strength 5/5, reduced hip pain to 2/10 with ambulation. Patient's Goals Arise from the floor and low chairs, walk two miles again. PLAN: Patient to be seen for Strengthening/condition Ice/Heat Spinal Stabilization Stretching Neuromuscular Re-ed Electrical Stim Gait Trg/Balance Trg Home Exercise Program 2x/Week for 2 Months Thank you for this referral. If you have any questions, comments, or concerns about this report or plan, please contact me at . [place]END
--- NOTE | 2018-12-04 16:26 | PT PLAN OF CARE ---
Physician: Dr. Jose Erwin Patient is being seen: 2x/week Therapist: Hawa Alatorre, PT Medical Diagnosis: Z74.09 Impaired functional mobility, balance, gait and endurance Treatment Diagnosis: R26.89 Imbalance, R53.81 Physical deconditioning, R 53.1 Weakness, Same Date of Onset: 04/08/17 Date of Initial Evaluation: 10/30/18 Date patient was last seen: 12/04/18 Number of treatments: 10 Number of cancellations/No shows: 0 INTERVENTIONS:, Strengthening/condition, Spinal Stabilization, Home Exercise Program GOALS: One month: Zoran arises from low chairs in one attempt, no UE use. not met Two months: Zoran arises from the floor independently (not met), R hip strength 5/5 (progressing), reduced hip pain to 2/10 with ambulation (progressing). PATIENT'S GOAL: Arise from the floor and low chairs, walk two miles again. Patient Compliance: Excellent Prognosis: Excellent Reasons for continuing therapy: S: Zoran relates his hip is less painful but still clunks at 11-12 sit to stand exercises. He isn't Strength: Quad R 4+/5, L 4+/5, hamstrings R 5-/5, L 4+/5, ankle DF, peroneals 5/5, calves 3+/5. Gait: Six minute walk test with O2 in the low 90's, highest HR81, distance reduced to 1,325 feet, gait speed 2.5 mph (was 2.9 mph) Mobility: Bd mobility with difficulty raising L LE onto the mat table due to L hip pain. Sit/stand 3 attempts from low chair with UE use due to L-S/LE weakness. A/P: Carlos "Zoran" Danii has improved quad and calf strength, but still needs to strengthen for transfers. He has reduced gait speed consistent with being ill lately. If you agree, we'll continue 2x/week another 4 weeks to goals set. Thank you. MIGEL
--- NOTE | 2019-01-15 16:55 | PT PLAN OF CARE ---
Physician: Dr. Jose Erwin Patient is being seen: 2x/week Therapist: Hawa Alatorre PT Medical Diagnosis: Z74.09 Impaired functional mobility, balance, gait and endurance Treatment Diagnosis: R26.89 Imbalance, R53.81 Physical deconditioning, R 53.1 Weakness, Same Date of Onset: 04/08/17 Date of Initial Evaluation: 10/30/18 Date patient was last seen: 01/15/19 Number of treatments: 20 Number of cancellations/No shows: 1 INTERVENTIONS: Strengthening/condition, Gait Trg/Balance Trg, Home Exercise Program GOALS: One month: Zoran arises from low chairs in one attempt, no UE use. met Two months: Zoran arises from the floor independently (not met), R hip strength 5/5 (progressing), reduced hip pain to 2/10 with ambulation (met). PATIENT'S GOAL: Arise from the floor (not met) and low chairs (progressing), walk two miles again (progressing, 1 mile). Patient Compliance: Excellent Prognosis: Excellent Reasons for continuing therapy: S: Zoran relates his R hip has popped twice in the last week. he's walking a mile at home and riding his stationary bike 1 mile daily, but isn't walking two miles yet. He relates his L-S area still feels weak with gait and transfers. O: ROM: Lumbar AROM WNL flexion, extension 50% without any R hip cluck. Strength: Quads and hamstrings R 5/5, L 5-/5, calves 4/5. R G. medius, G. minimus 5/5, piriformis 4+/5. Gait: Six minute walk test 1,154 feet, 16% impairment (norm for men his age = 1,368 feet) O2 on the low 90's on room air, BP, HR before 127/88, 61 and after 133/64, 64. Mobility: Bed mobility with difficulty raising L LE onto the mat table due to weakness. 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 Zoran has started stand to floor transfers today with stand to high kneel at 16.5" height, arms on parallel bars. Balance: Stepping reactions present, tandem stand mild trunk shimmy. Carlossang Rodriguezon Danii has improved strength, reduced hip subluxation and improve sit to stand transfers. Now that he's done with radiation, we can proceed to L-S strengthening, also work on bed mobility and transfers on/off the floor. If you agree, we'll continue at 2x/week 6 weeks. Thank you. MIGEL
--- NOTE | 2019-01-17 11:35 | SPEECH INITIAL EVALUATION ---
SPEECH THERAPY ASSESSMENT Physician: Jose Erwin M.D. Clinician: Kaitlyn Riggins MS, CCC-[facility] Type of Assessment: Dysphagia Evaluation Patient: Carlos Foy : 1935 Evaluation Date: 01-16-19 BACKGROUND Mr. Carlos Foy is an 83 year old male referred to for dysphagia evaluation 2nd to symptoms of dysphagia including odynophagia and globus sensation. Mr. Foy denies any food allergies though he is allergic to latex, statins, and adhesives per medical chart. He had a relapse of metastatic prostate cancer 08/2017. He finished 4 weeks of radiation on 01/08/19. Mr. De Leon dysphagia symptoms began approximately 3 weeks ago. The patient underwent an upper GI endoscopy performed by Dr. Jasvir King on 11/16/28 indicating mild diffuse gastritis and no duodenum abnormalities seen, per medical report. SPEECH Apraxia: Non-apraxics Dysarthric: Non-dysarthric Overall intelligibility: high VOICE Vocal Deficits: somewhat hoarse Changes to vocal quality: denies DYSPHAGIA Dysphagia Risk Evaluation Protocol DREP: Water Swallow Test: Pass RSST (Repetitive Saliva Swallow Test): Value greater than 3 times/30 sec = pass Sialorrhea: No Xerostomia: No Supplemental Oxygen Use: No Respiratory Rate: 18 bpm < 30 indicating a decreased risk of atypical respiratory/swallow pattern COPD Dx: No Pulse Oximetry: 96% SPo2 Oral Structure and Function: Within functional limits for speech and swallow. Pain with Swallow: Yes. Approximately middle 1/3 esophagus with food and liquid deglutition Respiratory/Swallow Coordination: Typically patterned (ie. exhale/swallow/exhale) Laryngeal Excursion: observed WNL for anterior/superior movement with swallow. No initiation delay SUMMARY Mr. De Leon symptoms are consistent with esophageal dysphagia. Onset of symptoms appear to coincide with initiation of radiation treatment as well as discontinuation of his reflux medication, (Ranitidine) as recommended by his physician. He reports he has experienced pain with swallow (food and liquid) at approximately the middle 3rd of the esophagus 2-3 times over the last 3 weeks. Globus sensation occurs concurrently with the pain and at the same location. He reports symptoms typically continue for under 1 minute. Additional swallows of liquids can help resolve his symptoms. Mr. Foy does not present with any oral or pharyngeal dysphagia symptoms. However, risk of pharyngeal dysphagia including aspiration is increased 2nd to suspected esophageal dysphagia especially if laryngopharyngeal reflux is occurring. The patient denies symptoms of LPR. RECOMMENDATIONS 1. No further ST recommended at this time. A modified barium swallow study is not indicated as the patient presents without pharyngeal symptoms. However, speech therapy is agreeable to perform an MBS if the physician deems it appropriate. 2. Esophagram may be appropriate if symptoms persist 3. Functional Oral Intake Scale FOIS: Level 7: Total oral intake with no restrictions 4. Dietary changes to reduce foods associated with reflux. Verbal and written education provided. 5. Follow swallow safety strategies to reduce risk of gastroesophageal reflux, LPR, and aspiration. Verbal and written education provided. Thank you for this referral. Please call ext [phone] ([facility] outpatient rehab) to contact the [facility]LE[facility] ASSOCIATE. Respectfully, Kaitlyn Riggins M.S., [facility] MIGEL
== END 2019-01-28 ==
LOC: PT 15:31
PROVIDERS: ATTEND Internal Medicine
DX: Z74.09 Other reduced mobility (principal); R26.89 Other abnormalities of gait and mobility; R53.81 Other malaise; R53.1 Weakness; Z96.641 Presence of right artificial hip joint
CPT/HCPCS: 97163

== ENCOUNTER 2019-01-25 00:24 | Day surgery (SDC) | payer MEDICARE, OTHER ==
[2019-01-25] VITALS (7 sets, daily range): BP systolic 96–129; BP diastolic 60–78
[~2019-01-25] VITALS: Ht 190.5 cm; Wt 95.3 kg
[2019-01-25] MEDS ORDERED: NORMOSOL R SOLN(*) 1000 ML BAG 1,000 ML IV PRN (07:45)
[2019-01-25] MEDS ORDERED: LIDOCAINE/SOD BICARB 8.4% SYR ID ONE (07:45)
[2019-01-25] MEDS ORDERED: KETAMINE HCL 500 MG/10 ML VIAL ONE ×2 (08:57)
--- NOTE | 2019-01-25 09:39 | Short(Outpt) Discharge Summary ---
Discharge Summary Reason for Hosp/Final Diag: (1) Colitis Hospital Course & Plan: pt presented for colonoscopy. he tolerated the procedure well. path pending. he will be discharged home when criteria met. Departure Discharge to: Home Discharge Instructions Home Meds Active Scripts Levofloxacin 750 Mg Tab (LEVAQUIN 750 MG TAB) 750 Mg Tablet, 1 TAB PO QDAY for 10 Days, #10 TAB 0 Refills Prov:LISBETH TOSCANO DNP, DIRECTOR OF PUBLIC RELATIONS-BC 01/21/19 Nitroglycerin (NITROGLYCERIN) 0.4 Mg Tab.subl, 1 TAB SL Every 5 minutes MDD 3, #30 TAB 3 Refills 1 tab every 5 min PRN chest pain, up to 3 doses in 15 minutes, if pain persists after 3 doses respond ER Prov:AME SAHU MD 10/22/18 Azelastine HCl (Azelastine HCl) 205.5 Mcg/0.137 Ml Gould.pump, 2 SPRAY NA QDAY PRN for sinus problems, #3 BOT 3 Refills Prov:AME SAHU MD 10/19/18 Varicella-Zoster Ge/As01b/Pf (Shingrix Vial Kit) 50 Mcg/0.5 Ml Kit, 0.5 ML IM ONCE, #1 KIT 1 Refill Prov:AME SAHU MD 10/10/18 Alirocumab (Praluent Pen) 75 Mg/1 Ml Pen.injctr, 75 MG SC Q4WK, #1 PACK 5 Refills Prov:AME SAHU MD 05/16/18 Ergocalciferol (Vitamin D2) (VITAMIN D2) 50,000 Unit Capsule, 40070 UNIT PO QWEEK, #12 CAPSULE 4 Refills Prov:AME SAHU MD 12/08/17 Fluticasone Propionate (Flonase Allergy Relief) 9.9 Ml Gould.susp, 1 SPRAY NA DAILY, #3 BOT 4 Refills Prov:AME SAHU MD 12/05/17 Pantoprazole Sodium (PANTOPRAZOLE SODIUM) 40 Mg Tablet.dr, 40 MG PO QDAY, #30 TAB.SR 6 Refills Prov:AME SAHU MD 08/07/17 Reported Medications Leuprolide Acet 3.75 Mg Qmonth (LUPRON DEPOT 3.75 MG QMONTH) 3.75 Mg Syringekit, 0 IM 12/05/17 Acetaminophen (TYLENOL) 325 Mg Tablet, 325 MG PO PRN, TAB 09/11/17 Multivitamin With Minerals (MULTIPLE VITAMIN) 1 Each Tablet, 1 EACH PO DAILY, TAB 09/11/17 Bicalutamide (BICALUTAMIDE) 50 Mg Tablet, 50 MG PO DAILY 09/11/17 Apixaban (ELIQUIS) 5 Mg Tablet, 5 MG PO BID 08/08/17 Cyanocobalamin (Vitamin B-12) (Vitamin B12) 2,500 Mcg Tablet, 1 TAB PO QDAY 06/01/17 Hydroquinone Microspheres (HYDROQUINONE) 30 Gm Crm.er..g., 1 PIA TP QDAY 06/01/17 Clopidogrel Bisulfate (PLAVIX) 75 Mg Tablet, 1 TAB PO QDAY, TAB 02/19/16 Diet: Regular Activity: As Tolerated Special Instructions: we will call you in 10 days with pathology results. WINNIE LEYVA Jan 25, 2019 09:39
--- NOTE | 2019-01-25 10:08 | NUR ---
DR LEYVA INTO SEE PT. EXPLAINED FINDINGS. PT REPORTS MODERATELY SEVERE HIP PAIN. REPOSITIONED WITH SOME RELIEF.
== END 2019-01-25 11:10 | disposition home or self-care (01) ==
LOC: OR 00:24
PROVIDERS: ATTEND Surgery
DX: D12.2 Benign neoplasm of ascending colon (principal); K57.30 Diverticulosis of large intestine without perforation or abscess without bleeding
CPT/HCPCS: 36416; 82948; 88305

== ENCOUNTER 2019-01-31 14:30 | Outpatient (RCR) | payer MEDICARE, OTHER ==
[2018-12-06 09:23] VITALS: BP 115/70
--- NOTE | 2018-12-06 12:16 | PURVIANCE CONSULTATION ---
EVENT DATE: December 06, [address] Abudl DIAGNOSIS Prostate adenocarcinoma. CHIEF COMPLAINT Mid thoracic back pain. HISTORY OF PRESENT ILLNESS Patient presents today for evaluation of his metastatic prostate cancer. The patient's history of prostatic cancer dates back to 1999, when he underwent a radical prostatectomy. The patient had a PSA failure in May 2017 and was noted to have extensive osseous metastases with PSA of 81.8. At that time, the patient was started on Lupron, Casodex and Xgeva. The patient at that time had a bone scan which did show multiple foci of metastatic disease within his axial and appendicular skeleton. The patient has been followed by Dr. Abdul from oncology, who is managing his systemic therapy. He did undergo re-stating CT scan and bone scan in October 2018. There was noted to be bony scar occlusions within the pelvis, which were slightly more conspicuous in number compared to the previous study on plain film x-ray. There was no sign of impending fracture. The bone scan showed persistent proximal left femur lesion as well as prominent areas at L2 and T11. The patient was recently hospitalized with black tarry stools and was diagnosed with colitis as well as gastritis. The patient's abdominal pain has since resolved since this hospitalization. The patient does report fairly mild pain in his thoracic spine as well as mild pain in his right hip. He denies other sites of significant bone pain. PAST MEDICAL HISTORY 1. Prostate cancer, see HPI. 2. Coronary artery disease, status post angioplasty and stents as well as pacemaker placement. 3. Hyperlipidemia. 4. Hypertension. 5. Atrial fibrillation. PAST SURGICAL HISTORY 1. Prostatectomy in 1999. 2. Cholecystectomy in 2000. 3. Pacemaker in 2013. 4. Right total hip replacement in 2013. MEDICATIONS Lupron, Casodex, Eliquis, Plavix, Ramipril, Zantac, vitamin D. ALLERGIES No known drug allergies. FAMILY HISTORY Noncontributory. SOCIAL HISTORY The patient is . 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 No significant alcohol or tobacco history. REVIEW OF SYSTEMS A 14-point review of systems is documented in the electronic medical record and is reviewed and signed. PHYSICAL EXAMINATION VITAL SIGNS: Temperature 97.0, pulse 67, blood pressure 115/73, respiratory rate 16, O2 saturation 93% on room air. CONSTITUTIONAL AND GENERAL APPEARANCE: The patient is sitting comfortably in the chair, in no acute distress. HEENT: Pupils are equal, round and reactive to light and accommodation. Extraocular movements are intact. There are no lesions in the oropharynx. NECK: Supple, trachea is midline. LYMPHATIC SURVEY: No palpable supraclavicular lymphadenopathy bilaterally. LUNGS: Clear to auscultation and percussion bilaterally. CARDIOVASCULAR: Regular rate and rhythm. No murmurs, rubs or gallops. ABDOMEN: Soft and nontender with active bowel sounds. No hepatosplenomegaly. EXTREMITIES: No edema, clubbing or cyanosis. NEUROLOGIC: The patient is alert and oriented x3. Gait is normal. IMPRESSION Prostate cancer metastatic to the bone, currently castrates sensitive of Lupron and Casodex as well as Xgeva. The patient does have persistent disease in the thoracic spine as well as in the left proximal femur. He does have slight progression of disease within his bony pelvis. The patient has recently recovered from an episode of colitis and is scheduled to undergo further workup of his colitis including possible colonoscopy. PLAN We will offer palliative radiotherapy to his lesion in the lower thoracic spine to relieve pain in this area and prevent fracture. We will additionally treat his left proximal femur to prevent fracture in this area. These radiation therapy portals will be away from his abdominal cavity and, as such, will not exacerbate his colitis. The advocacy of radiotherapy and palliating bony metastatic disease was discussed with the patient as well as the side effect profile. We will plan to use intensive measures of radiotherapy to decrease dose to the normal tissue. MTDD
--- NOTE | 2019-01-10 11:36 | ONCOLOGY COMPLETION NOTE ---
EVENT DATE: January 07, 2019 DIAGNOSIS Metastatic prostate carcinoma to bone. Patient referred for palliative radiotherapy. ONCOLOGY HISTORY 1. Radical prostatectomy, 1999. 2. Identification of bone metastasis, 2016, with PSA elevation to 81. 3. Patient started on Lupron plus Casodex and Xgeva. 4. Recent bone scan requested by Dr. Abdul along with CT scan reveals significant tumor lesions of the left femur as well as L2 and T11. UNRELATED ONCOLOGY DIAGNOSIS 1. Recent episode of colitis and gastritis. 2. Known history of coronary artery disease, hypertension and atrial fibrillation. 3. Prior right hip replacement, 2013. 4. Pacemaker placement, 2013. 5. Cholecystectomy, 2000. TREATMENT DETAILS 1. Radiation therapy targeted to the left femur bony metastasis/hip. 3750 cGy was delivered in 15 fractions. Treatment was delivered December 18, 2018 to January 08, 2019. 2. Simultaneous treatment of the isolated lesion at T-spine, delivering 3750 cGY in 15 fractions. Treatment started December 18, 2018, and completed January 08, 2019. TOLERANCE Patient tolerated the radiation therapy course quite well. Reports his pain has dropped to a 3 on a scale of 1 to 10. Fatigue continues to rate a 5 on a scale of 1 to 10. Baseline urinary function is stable with nocturia x2 to 3, occasional constipation, p.r.n. use of hydrocodone/APAP. DISPOSITION Patient will followup with Dr. Abdul and Dr. Miner per plan. We will reassess his pain control at his next scheduled appointment. Please do not hesitate to contact me if there are any questions. Dr. Spence was directly involved with the patient's initial simulation and consultation. I assisted Dr. Spence in co-managing the patient throughout the radiation therapy course. Thank you for your confidence in our [facility]. We will be happy to see the patient in the future if he has any isolated bone metastasis which need palliation to prevent fracture or uncontrolled pain. [*] MTDD
--- NOTE | 2019-01-11 16:52 | ONCOLOGY FOLLOW UP NOTE ---
EVENT DATE: January 07, 2019 CHIEF COMPLAINT Mr. Foy is a pleasant 83-year-old gentleman with metastatic prostate cancer, on Casodex, Lupron, and Xgeva with treatment by Dr. Miner for his hormonal therapy, who presents for followup. HISTORY OF PRESENT ILLNESS Mr. Foy returns today for followup. Overall, he reports that he is doing fairly well with the exception of some GI complaints. His PSA has been steadily improving from 2.8 in March 2018 down to 1.7 in October 2018. He has had a slow and steady response. His most recent PSA on 12/21/18 was down to 1.56. He continues to receive his Lupron through Dr. Miner. Most recently, he has reported two or three months of intermittent yrsaea-fhjbuw-urhbjcrqv melena. We were concerned about this, though this seemed unrelated to his prostate cancer. He has had discomfort as well, and he has been avoiding aspirin and NSAIDs. He only uses Tylenol as needed. 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 His hematocrit has been stable. He reports that he recently had an endoscopy done on 11/16/18. Pathology did not reveal any significant abnormalities other than minimal chronic inflammation, but no evidence of dysplasia or malignancy. Biopsies were H. pylori negative. He tells me that he is scheduled for a colonoscopy in the near future. He does continue to have some abdominal discomfort, though his coffee-ground stools have improved. He was apparently an inpatient in [place] a few weeks ago due to his abdominal pain. He was diagnosed with colitis. PSA has improved, but CT scan and bone scan did show concerning areas for metastatic disease. One area of concern is near an artificial hip. We recommended that he meet with Dr. De La Cruz to evaluate this and consider treatment. He has worked with Physical Therapy to improve symptoms as well. He will be meeting with Dr. De La Cruz tomorrow for radiotherapy. He was switched to PPI prophylaxis while hospitalized and is now on daily Protonix. He reports that he is having constipation and occasionally darker stools. He is now also reporting some dysphagia, which he noticed a couple of days ago. He does not have any pain after swallowing, but tells me he has some difficulty with swallowing. He tells me he simply has to chew a bit more and does need to have fluids with him when eating. He tells me that he was not diagnosed with any abnormalities in the esophagus. ONCOLOGY HISTORY Diagnosed with prostate cancer in 1999. He underwent prostatectomy. He was then found to have metastatic prostate cancer to the bones in September 2017. He is currently on Casodex and Lupron under the care of Dr. Miner. He receives Xgeva at our clinic monthly. PAST MEDICAL HISTORY 1. Prostate cancer, 1999. 2. Coronary artery disease, status post angioplasty and stents. 3. Hyperlipidemia. 4. Hypertension. 5. Atrial fibrillation. PAST SURGICAL HISTORY 1. Prostatectomy 1999. 2. Cholecystectomy 2000. 3. Pacemaker 2013. 4. Total hip replacement on the right. FAMILY HISTORY One brother had leukemia. Mother had breast and liver cancer. Sister with abdominal cancer. SOCIAL HISTORY Patient is . They have one son. 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 He smoked for a short time, but quit in 1962. He does not drink alcohol. MEDICATIONS 1. Casodex 50 mg. 2. Eliquis 5 mg b.i.d. 3. Plavix. 4. Ramipril. 5. Zantac. 6. Vitamin D. ALLERGIES No known drug allergies. REVIEW OF SYSTEMS CONSTITUTIONAL: Patient denies any recent fevers, chills, or night sweats. He believes his appetite is stable. HEENT: No vision changes. No tinnitus. No mouth sores. He does report some occasional dysphagia, which he has only recently noticed over the last couple of days. No reports of odynophagia. CARDIOVASCULAR: He denies any chest pain, dyspnea on exertion, syncope, or presyncope. RESPIRATORY: He denies any significant cough, sputum production, shortness of breath, or pleuritic chest pain. GASTROINTESTINAL: Continues to have some occasional abdominal discomfort as well as alternating diarrhea and constipation. He recently had some melena as noted above. He is now having less frequent coffee-ground stools, but reports that this still occurs. He is status post EGD. He will be having colonoscopy in the near future. He denies any hematemesis. He reports his appetite is stable. GENITOURINARY: No dysuria, hematuria, or genitourinary discharge. He has stable nocturia times two. MUSCULOSKELETAL: No focal areas of pain. PSYCHIATRIC: He denies any severe anxiety, severe, depression, suicidal or homicidal ideation. DERM: He denies any rash or suspicious lesions. He does have some skin changes, likely related to prior radiation exposure and sun exposure. Patient reports some occasional itching from an eczema-like condition which he states flares up and has been chronic for many years. He simply applies cream, and this dissipates. He does follow up with Dermatology routinely. The remainder of a 12-point review of systems is performed today and is otherwise negative. PHYSICAL EXAMINATION VITAL SIGNS: Weight 222 pounds. Temperature 96.8, P 60, R 16, BP 122/76, oxygen saturation 96% on room air. He does report some lower back pain between 4 to 10. GENERAL: In general, this is a pleasant 83-year-old male who appears well hydrated, well nourished, and is in no acute distress. HEAD: Normocephalic, atraumatic. EYES: Sclerae anicteric. ENT, MOUTH: Moist mucous membranes. No mucositis. NECK: Supple. No lymphadenopathy. No JVD. CARDIOVASCULAR: Regular rate and rhythm. No ectopy. LUNGS: Clear breath sounds to auscultation bilaterally. No focal findings. Respiratory effort is normal. ABDOMEN: Soft, nontender, nondistended. He has a small ventral hernia. Bowel sounds positive times four. No organomegaly. EXTREMITIES: No edema. No clubbing or cyanosis. DERM: Numerous skin lesions have been removed from skin cancer. He continues to follow up with Dermatology. LABORATORY CBC on 12/21/18: WBC 4.6, ANC 2.4, hemoglobin 15.5, hematocrit 44.9%, platelets 152,000. Red blood cell indices were normal. CMP on same date: Largely unremarkable. Serum creatinine minimally low at 0.60. Total bilirubin was elevated at 1.7, which is up from 1.2. He did have an elevated bilirubin in the past and has been as high as 1.7 two years ago. AST up to 39, though this was previously at 60 on 12/03/18. ALT normal at 29. Alkaline phosphatase normal at 60. Total protein normal at 6.7 with albumin of 4.0. PSA on the same date: 1.56, slightly increased from 1.07 on 11/23/18. IMAGING CT abdomen and pelvis with and without contrast at on 11/08/18: 1. Diffuse osteoblastic metastases with visualized bones appear relatively stable when compared to prior study. 2. Small left inguinal hernia containing fat. 3. Small ventral hernia containing fat. 4. Previously described left external iliac lymph node has further decreased in size. 5. There is thickening of the visualized distal esophagus. This could be inflammatory in nature, although clinical correlation suggested. 6. Additional chronic findings as detailed above. IMPRESSION AND PLAN Mr. Foy is a very pleasant 83-year-old gentleman with the following: Metastatic prostate cancer, currently on Casodex, Lupron, and Xgeva. We will need to continue the Xgeva monthly given the bone lesions that we have seen on the recent imaging. Initially, the thought was to move this to quarterly dosing as we thought he was in complete remission. However, this is not the case. Patient and his are aware. He does have a lesion near the artificial hip, and he is now under the care of Radiation Oncology with Dr. De La Cruz. He is aware of the potential for additional therapy such as enzalutamide or abiraterone. Currently, his PSA is stable, though it is minimally up from last visit up to 1.5. Currently, we will hold off on any additional therapy as this is not required at this time, but this may need to be considered in the future. 1. Patient will continue with Lupron per his urologist. 2. Patient will continue with Xgeva, which we are administering here. He is not due for this for another one to two weeks. 3. Dysphagia: Patient reports that this is new onset, most noticeable in the last couple of days. He recently has had an esophagogastroduodenoscopy and is scheduled for colonoscopy in the next couple of weeks. There were no abnormalities seen on esophagogastroduodenoscopy; however, I am going to refer him to Speech Therapy for swallow evaluation to further evaluate this. He is aware that he will need to follow up with his cement side laster as well. 4. Patient will return to the clinic as scheduled for next Xgeva. 5. Patient will continue to follow up with Radiation Oncology. 6. Patient will return to clinic for followup with his medical oncologist, Dr. Abdul, currently scheduled for 03/18/19. 7. We reviewed signs and symptoms and parameters of when to call our office, especially in regards to his recent gastrointestinal issues. Patient and verbalize understanding. HEAVEND
[2019-01-31 14:52] VITALS: BP 106/69
--- NOTE | 2019-02-01 00:38 | ONCOLOGY FOLLOW UP NOTE ---
EVENT DATE: January 31, 2019 DIAGNOSIS Metastatic prostate cancer to the bone. ONCOLOGY HISTORY 1. Radical prostatectomy in 1999. 2. Identification of bone metastases to 2017 with a PSA of 81. 3. Patient started on Lupron, Casodex, and Xgeva in 2017. 4. Patient completed palliative radiotherapy to his left hip/proximal femur to a dose of 3750 cGy, as well as his thoracic spine to a dose of 3750 cGy in 15 fractions, completed on January 08, 2019. INTERVAL HISTORY The patient presents today for followup. On presentation today, patient overall feels well. The patient reports that his mid-back pain has resolved. His main complaint remains abdominal pain. This is relatively stable. He denies other sties of significant bone pain. He has no right hip pain. The patient has no dysphagia, nausea or diarrhea. PAST MEDICAL HISTORY 1. Prostate cancer, see above. 2. Coronary artery disease. 3. Hyperlipidemia. 4. Hypertension. 5. Atrial fibrillation. PAST SURGICAL HISTORY 1. Prostatectomy in 1999. 2. Cholecystectomy in 2000. 3. Pacemaker in 2013. 4. Right total hip replacement in 2013. MEDICATIONS 1. Lupron. 2. Eliquis. 3. Plavix. 4. Ramipril. 5. Zantac. 6. Vitamin D. ALLERGIES No known drug allergies. FAMILY HISTORY Noncontributory. SOCIAL HISTORY Patient is . 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 No significant alcohol or tobacco history. REVIEW OF SYSTEMS A 14-point review of systems is reviewed and signed in the electronic medical record. PHYSICAL EXAMINATION VITAL SIGNS: Temperature 96.2, pulse 61, blood pressure 106/69, respiratory rate 16, O2 saturations 93% on room air. CONSTITUTIONAL/GENERAL APPEARANCE: Patient is sitting comfortably in a chair in no acute distress. HEENT: Pupils equal, round, reactive to light and accommodation. Extraocular movements are intact. There are no lesions of the oral cavity. NECK: Supple. Trachea midline. LYMPHATICS: No palpable supraclavicular lymphadenopathy bilaterally. LUNGS: Clear to auscultation and percussion bilaterally. CARDIOVASCULAR: Regular rate and rhythm. Normal S1 and S2. No murmurs, rubs, or gallops. ABDOMEN: Soft and nontender, with active bowel sounds. No hepatosplenomegaly. EXTREMITIES: No edema, clubbing, or cyanosis. NEUROLOGIC: The patient is alert and oriented x3. Gait is normal. SKIN: Patient has faint erythema along his right hip. There is no desquamation. He has no erythema along his thoracic spine or mid back. PERFORMANCE STATUS: 80%. IMPRESSION Castrate-sensitive prostate adenocarcinoma, status post palliative radiotherapy to the thoracic spine and right hip. The patient has had an excellent palliative response to radiotherapy. He has recovered well, without significant acute sequelae. The patient continues on Lupron. PLAN The patient will follow up with Radiation Oncology in four months with a bone scan and PSA. He is due to see Dr. Abdul in two months. MTDD
[2019-02-01] MEDS ORDERED: LEVO750T44 PO (15:58)
[2019-02-04] MEDS ORDERED: LEVO750T44 PO (16:52)
[2019-03-08] MEDS ORDERED: CICL15CR TP (13:31)
== END 2019-03-05 ==
LOC: RAON 14:30
PROVIDERS: ATTEND Radiology Radiation Oncology
DX: Z51.0 Encounter for antineoplastic radiation therapy (principal); C61 Malignant neoplasm of prostate; C79.51 Secondary malignant neoplasm of bone; I25.10 Atherosclerotic heart disease of native coronary artery without angina pectoris; E78.5 Hyperlipidemia, unspecified; I10 Essential (primary) hypertension; I48.91 Unspecified atrial fibrillation; Z79.01 Long term (current) use of anticoagulants; Z95.5 Presence of coronary angioplasty implant and graft; Z95.0 Presence of cardiac pacemaker
CPT/HCPCS: 77336; 77386; 77412; G0463; 36415; 77280; 77290; 77300; 77301; 77338; 82040; 82247; 82310; 82374; 82435; 82565; 82947; 84075; 84132; 84153; 84155; 84295; 84450; 84460; 84520; 85025; 96372; 99202; 99212; J0897

== ENCOUNTER 2019-03-07 09:00 | Outpatient (RCR) | payer MEDICARE, OTHER ==
--- NOTE | 2019-01-30 09:18 | PT PLAN OF CARE ---
Physician: Dr. Jose Erwin Patient is being seen: Hawa Alatorre, PT Therapist: Hawa Alatorre, PT Medical Diagnosis: Z74.09 Impaired functional mobility, balance, gait and endurance Treatment Diagnosis: R26.89 Imbalance, R53.81 Physical deconditioning, R 53.1 Weakness, Same Date of Onset: 04/08/17 Date of Initial Evaluation: 10/30/18 Date patient was last seen: 01/29/19 Number of treatments: 23 Number of cancellations/No shows: 1 INTERVENTIONS: Strengthening/condition, Spinal Stabilization, Stretching, Neuromuscular Re-ed, Gait Trg/Balance Trg Home Exercise Program GOALS: One month: Zoran arises from low chairs in one attempt, no UE use. met Two months: Zoran arises from the floor independently (not met), R hip strength 5/5 (progressing), reduced hip pain to 2/10 with ambulation (met). PATIENT'S GOAL: Arise from the floor (not met) and low chairs (met), walk two miles again (progressing, 1 mile). 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 he's walking a mile. L LBP is 4/10, worse with walking and transfers. He hasn't got onto/off the floor yet. Oswestry Disability Index 40%. Posture: Reduced lumbar lordosis, slightly taller L iliac crest. ROM: Lumbar AROM WNL flexion, 75% extension. Strength: Hip abductors 5-/5. Gait: Gait speed improved from 2.2 mph to 2.3 mph, 6 minute walk test 1,233 ft, a 9% impairment (norm for his age = 1,368 feet). Balance: Normal balance reactions on firm surfaces. Mobility: Bed mobility WNL rolling, to all 4's to high kneel. Zoran has difficulty with hip abduction at the edge of the mat table going to sitting due to weakness. .Sit/stand 1 attempt from a low chair. A/P: Zoran Danii is improving mobility, gait speed and needs to strengthen his hips and L-S region more. If you agree, we'll continue 2x/week another 4-6 weeks to goals set. Thank you. MTDD
--- NOTE | 2019-03-05 15:22 | PT PLAN OF CARE ---
Physician: Dr. Jose Erwin Patient is being seen: 2x/week Therapist: Hawa Alatorre, PT Medical Diagnosis: Z74.09 Impaired functional mobility, balance, gait and endurance Treatment Diagnosis: R26.89 Imbalance, R53.81 Physical deconditioning, R 53.1 Weakness, Same Date of Onset: 04/08/17 Date of Initial Evaluation: 10/30/18 Date patient was last seen: 03/05/19 Number of treatments: 33 Number of cancellations/No shows: 0 INTERVENTIONS: Strengthening/condition Spinal Stabilization Neuromuscular Re-ed Gait Trg/Balance Trg Home Exercise Program GOALS: One month: Zoran arises from low chairs in one attempt, no UE use. met Two months: Zoran arises from the floor independently (not met), R hip strength 5/5 (progressing), reduced hip pain to 2/10 with ambulation (met). PATIENT'S GOAL: Arise from the floor (not met) and low chairs (met), walk two miles again (progressing, 1 mile). Patient Compliance: Excellent Prognosis: Excellent Reasons for continuing therapy: S: Zoran relates he uses a chair to arise from the floor, but his hip doesn't pop. He denies falls. O: ROM: Lumbar AROM flexion WNL, extension 50%. Strength: R hip flexors 4+/5, extensors 5-/5, otherwise R and L hip 5/5. Gait: Six minute walk test 1,425 feet, above norm for his age (1,368 feet). Balance: Gleason Balance Assessment 56/56, 0% impairment. Mobility: Bed mobility with stiffness in the trunk and LE's, lifts L LE better. On/off floor independent with chair. A/P: Zoran Danii has improved gait, should use a chair to arise from the floor because of his L hip. If you agree, we'll finish PT this week to work HEP then DC PT to [facility]P. Thank you. MIGEL
[2019-03-08] MEDS ORDERED: CICL15CR TP (13:31)
== END 2019-03-07 18:00 | disposition home or self-care (01) ==
LOC: PT 09:00
PROVIDERS: ATTEND Internal Medicine
DX: Z74.09 Other reduced mobility (principal); R26.89 Other abnormalities of gait and mobility; R53.81 Other malaise; R53.1 Weakness; Z96.641 Presence of right artificial hip joint; C61 Malignant neoplasm of prostate; C79.81 Secondary malignant neoplasm of breast

== ENCOUNTER → 2019-03-28 | Outpatient (CLI) | payer MEDICARE, OTHER ==
[~2019-03-28] MED LIST changes: +CICL15CR TP; -RANI-366 PO; +RANI-54 PO
== END ==
LOC: LAB 08:06
PROVIDERS: ATTEND Internal Medicine
DX: C61 Malignant neoplasm of prostate (principal); I25.10 Atherosclerotic heart disease of native coronary artery without angina pectoris; I10 Essential (primary) hypertension; I48.91 Unspecified atrial fibrillation
CPT/HCPCS: 36415; 82306; 82465; 83718; 84443; 84478

== ENCOUNTER → 2019-04-04 | Outpatient (RCR) | payer MEDICARE, OTHER ==
[2019-01-07 09:47] VITALS: BP 122/76
[2019-01-18 10:36] LABS: PLATELET COUNT, AUTOMATED 109 K/uL (150-450)
[2019-01-18 10:40] VITALS: BP 116/75
[2019-02-15 10:35] VITALS: BP 122/77
[2019-02-15 10:37] LABS: PLATELET COUNT, AUTOMATED 123 K/uL (150-450)
[2019-03-19 10:01] LABS: PLATELET COUNT, AUTOMATED 119 K/uL (150-450)
[2019-03-19 10:25] VITALS: BP 114/77
[2019-03-19 11:37] VITALS: BP 114/77
--- NOTE | 2019-03-19 11:40 | ONCOLOGY FOLLOW UP NOTE ---
EVENT DATE: March 19, 2019 CHIEF COMPLAINT Followup for prostrate cancer. HISTORY OF PRESENT ILLNESS Patient is an 83-year old male who was seen today in one month followup for prostate cancer. He is receiving Xgeva on a monthly basis at our clinic and continues with every three month Lupron under the direction of Dr. Miner. He is also on bicalutamide, which he is tolerating well. He has undergone a Mohs' surgery on his left ear, revealing basal cell carcinoma. This area became infected but has healed now. He was hospitalized last November with gastritis and colitis. He states that his bowels are still up and down with intermittent loose stools and constipation. ONCOLOGY HISTORY Patient was diagnosed with prostate cancer in 1999 and underwent prostatectomy. He was then found to have metastatic prostate cancer to the bones in September 2017. He continues on Casodex and Lupron as well as monthly Xgeva. He underwent radiation to the lower thoracic spine from December 18, 2018 through January 08, 2019. PAST MEDICAL HISTORY 1. Prostate cancer, 1999. 2. Coronary artery disease, status post angioplasty and stents. 3. Hyperlipidemia. 4. Hypertension. 5. Atrial fibrillation. SURGICAL HISTORY 1. Prostatectomy, 1999. 2. Cholecystectomy, 2000. 3. Pacemaker, 2013. 4. Total hip replacement on the right. 5. Mohs' procedure, left ear. FAMILY HISTORY One brother had leukemia. Mother had breast and liver cancer. Sister with abdominal cancer. SOCIAL HISTORY Patient is . They have one son. 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 He smoked for a short time, but quit in 1962. He does not drink alcohol. MEDICATIONS 1. Casodex 50 mg. 2. Eliquis 5 mg b.i.d. 3. Plavix. 4. Ramipril. 5. Zantac. 6. Vitamin D. ALLERGIES No known drug allergies. REVIEW OF SYSTEMS A 12-point review of systems is performed and is negative except as stated above. PHYSICAL EXAMINATION VITAL SIGNS: Weight 100.4 kg, BP 114/77, P 60, R 16, temp 97.8, O2 sat 96%. GENERAL: Patient is a well-developed, well-nourished male in no acute distress. HEAD: Normocephalic, atraumatic. EYES: Sclerae anicteric. MOUTH: Moist mucous membranes. NECK: Supple. No palpable adenopathy. CARDIOVASCULAR: Heart rate regular, 60 per minute without murmur. LUNGS: Clear bilaterally. ABDOMEN: Soft, nontender with hypoactive bowel sounds. No organomegaly. EXTREMITIES: Trace peripheral edema. NEURO: Nonfocal. LABORATORY STUDIES CBC today reveals a WBC of 3.6, ANC 1.6, hemoglobin 14.6, hematocrit 41.8, platelets 119,000. CMP is within normal limits except for mildly elevated bilirubin of 1.4 and AST of 42. PSA is 0.58. IMPRESSION The patient is an 83-year-old male with metastatic prostate cancer, currently being treated with Lupron and bicalutamide. He also receives Xgeva on a monthly basis. PLAN 1. Prostate cancer. Continue Xgeva. He is tolerating this without issue. 2. Response. PSA has now decreased from 0.88 to 0.58. We will continue current plan. 3. Gastrointestinal. History of recent gastritis and colitis. He was hospitalized last November. He states that his bowels are intermittently constipated versus loose stools but feels he is managing. 3. Pain. Denies any pain. He received radiation to the lower thoracic spine and then underwent physical therapy. 4. Follow up with Dr. Abdul on April 15, 2019. CBC, CMP and PSA will be drawn at that time. He will also receive Xgeva. MTDD
[~2019-04-04] MED LIST changes: +DENOSUMAB 120 MG/1.7 ML VIAL SUBQ ONE
[2019-04-04 12:10] VITALS: BP 123/76
[2019-04-04 12:31] LABS: PLATELET COUNT, AUTOMATED 124 K/uL (150-450)
== END ==
LOC: SPU 01-04 14:48 → ONC 03-19 09:34 → SPU 12:00
PROVIDERS: ATTEND Internal Medicine
DX: C61 Malignant neoplasm of prostate (principal); C79.82 Secondary malignant neoplasm of genital organs; Z79.899 Other long term (current) drug therapy; R19.7 Diarrhea, unspecified; K59.00 Constipation, unspecified
CPT/HCPCS: 36415; 83735; 84100; 84153; 85025; 87070; 87077; 87186; 96372; G0463; J0897; 82040; 82247; 82310; 82374; 82435; 82565; 82947; 84075; 84132; 84155; 84295; 84450; 84460; 84520; 99212

== ENCOUNTER → 2019-05-08 | Outpatient (CLI) | payer MEDICARE, OTHER ==
[~2019-05-08] MED LIST changes: -DENOSUMAB 120 MG/1.7 ML VIAL SUBQ ONE
[2019-05-08 12:30] LABS: PLATELET COUNT, AUTOMATED 131 K/uL (150-450)
== END ==
LOC: LAB 11:46
PROVIDERS: ATTEND Internal Medicine
DX: K52.9 Noninfective gastroenteritis and colitis, unspecified (principal); R19.7 Diarrhea, unspecified; R10.9 Unspecified abdominal pain
CPT/HCPCS: 81001; 82040; 82150; 82247; 82310; 82374; 82435; 82565; 82947; 83690; 84075; 84132; 84155; 84295; 84443; 84450; 84460; 84520; 85025

== ENCOUNTER → 2019-05-09 | Outpatient (CLI) | payer MEDICARE, OTHER ==
[~2019-05-09] MED LIST changes: +IOPAMIDOL 76% 100 ML INFUS BTL 100 ML ONE
--- NOTE | 2019-05-09 11:36 | RADIOLOGY IMAGING REPORT ---
FACILITY: [facility] [place] PATIENT NAME: Carlos Foy : 1935 MR: [id number] V: [id number] EXAM DATE: ORDERING PHYSICIAN: AME SAHU TECHNOLOGIST: [place] [facility] [place] Carlos Foy : 1935 Visit/Account:[id number] Date of Sevice: 05/09/2019 CT ABDOMEN PELVIS W & W/O CONTRAST HISTORY: Abd pain, diarhea history of colitis TECHNIQUE: Axial images acquired through the abdomen/pelvis both with and without IV contrast.. Sukh nal and sagittal reformatting also performed.Dose Lowering Technique One of the following dose optimization techniques was utilized in the performance of this exam: Autom ated exposure control; adjustment of the mA and/or kV according to the patient's size; or use of an i terative reconstruction technique. Specific details can be referenced in the facility's radiology C T exam operational policy. CONTRAST: 75 mL Isovue-370 COMPARISON: November 08 2018 FINDINGS: Visualized lung bases: Linear scarring in the lung bases again noted. There is increased coarse per ibronchial thickening in the medial left lower lobe which may represent bronchiectasis. Severe coron doug artery calcification/stents again seen in addition to a cardiac pacemaker Hepatobiliary: Negative. Spleen: Negative. Adrenals: Negative. Pancreas: Negative. Kidneys ureters and bladder: Negative. Genitalia: Postsurgical changes from a prostatectomy GI: There is thickening of the distal esophagus and fluid identified in the distal lumen of the esop hagus There is a focal narrowing in the proximal jejunum best appreciated on axial image 34 series 6. And coronal images 20 through 23 of series 8 This may simply represent an area of spasm or peristalsis al though clinical correlation needed. Vessels/spaces/nodes: Atherosclerotic calcifications throughout the abdomen and pelvis again noted. There is moderate narrowing at the origin the right renal artery. Incidental retroaortic left renal vein . Previously noted 1.2 x 0.8 cm left external iliac lymph node remains stable. There is a trace amount of free pelvic fluid Bones/soft tissues: There are numerous streak artifacts and pelvis from a right hip arthroplasty. D iffuse osteoblastic metastases appear relatively unchanged There are multiple old right-sided rib fractures Additional findings: None pertinent. IMPRESSION: Coarse peribronchial thickening in the medial left lower lobe which may represent bronchiectasis There is thickening of the distal esophagus and fluid also in the distal esophageal lumen. Clinical follow-up recommended There is focal narrowing in the proximal jejunum as described above. Although this may simply repres ent an area of spasm or peristalsis given the clinical history of abdomen pain and diarrhea follow-up recommended. This could be further evaluated with a small bowel follow-through or CT enterography. Diffuse osteoblastic metastases appear relatively unchanged Additional chronic findings as described Results were called to AME SAHU at 05/09/2019 11:28 AM. Report Dictated By: Nury Dawn MD at 05/09/2019 10:41 AM Report E-Signed By: Nury Dawn MD at 05/09/2019 11:28 AM WSN:[email or web address]
== END ==
LOC: CT 07:26
PROVIDERS: ATTEND Internal Medicine
DX: C79.51 Secondary malignant neoplasm of bone (principal); R10.9 Unspecified abdominal pain; K52.9 Noninfective gastroenteritis and colitis, unspecified
CPT/HCPCS: 74178; Q9967

== ENCOUNTER → 2019-05-14 | Outpatient (CLI) | payer MEDICARE, OTHER ==
[~2019-05-14] MED LIST changes: -IOPAMIDOL 76% 100 ML INFUS BTL 100 ML ONE
== END ==
LOC: LAB 11:21
PROVIDERS: ATTEND Urology
DX: C61 Malignant neoplasm of prostate (principal)
CPT/HCPCS: 36415; 84153

== ENCOUNTER → 2019-05-28 | Outpatient (CLI) | payer MEDICARE, OTHER ==
--- NOTE | 2019-05-28 13:30 | RADIOLOGY IMAGING REPORT ---
FACILITY: [facility] PATIENT NAME: Carlos Foy : 1935 MR: [id number] V: [id number] EXAM DATE: ORDERING PHYSICIAN: EZ EUCEDA TECHNOLOGIST: Location: [facility] Patient: Carlos Foy : 1935 Visit/Account:[id number] Date of Sevice: 05/28/2019 NM BONE SCAN COMPLETE HISTORY: Prostate cancer TECHNIQUE: 27.6 mCi technetium 99m HDP was injected intravenously. Delayed anterior and posterior wh ole body gamma camera images were obtained. Additional gamma camera images: Right left lateral skull COMPARISON: November 07, 2018 FINDINGS: Bone radiotracer activity: Increased ASP uptake is again noted in the proximal left femur and in the right sacral jorge and T10 and T8, bilateral scapula and multiple ribs bilaterally. Very faint uptak e over the right orbit may be related to old trauma Increased ASP uptake over the lower cervical spine appears similar to the prior study and may be post surgical in nature. Degenerative type uptake is noted over the shoulders elbows the wrists the knees and feet Extraosseous radiotracer activity: Unremarkable. Renal and urinary collecting system activity: Unremarkable. IMPRESSION: Multifocal areas of isotope uptake as described above consistent with the history of prostate cancer with osseous metastases. The pattern is similar to the prior study from November 07, 2018 Report Dictated By: Nury Dawn MD at 05/28/2019 1:12 PM Report E-Signed By: Nury Dawn MD at 05/28/2019 1:22 PM WSN:[email or web address]
== END ==
LOC: NUC 01:11
PROVIDERS: ATTEND Nurse Practitioner
DX: C61 Malignant neoplasm of prostate (principal); C79.82 Secondary malignant neoplasm of genital organs
CPT/HCPCS: 78306; A9503